=== PATIENT | female | born 1995 | race Caucasian/White ===

== ENCOUNTER 2016-08-10 23:04 | Inpatient (IN) | payer OTHER ==
[2016-08-10] MEDS ORDERED: TERBUTALINE 1 MG/ML VIAL SQ PRN (23:27)
[2016-08-10] MEDS ORDERED: OXYTOCIN 10 UNIT/ML 1 ML VIAL IM PRN (23:27)
[2016-08-10] MEDS ORDERED: CARBOPROST TROMETHAMINE 250 MCG/ML 1 ML AMP IM PRN (23:27)
[2016-08-10] MEDS ORDERED: LIDOCAINE 1% (PF) 10 MG/ML (30 ML SDV) SQ PRN (23:27)
[2016-08-10] MEDS ORDERED: METHYLERGONOVINE 0.2 MG/ML 1 ML AMP IM PRN (23:27)
[2016-08-10] MEDS ORDERED: OXYTOCIN 30 UNITS/500 ML NS 30 UNIT in SALINE 1 500ML.BAG IV SCH (23:30)
[2016-08-11 00:06] LABS: Basophils # (A) 0.1 k/uL (0-0.2); Basophils % (A) 0 %; CH 30.3; CHCM 34.1; Eosinophils # (A) 0.1 k/uL (0-0.7); Eosinophils % (A) 1 %; HCT 40.7 % (34.0-46.0); HDW 2.95; HGB 13.2 gm/dL (11.4-16.0); Luc # (Auto) 0.19; Luc % (Auto) 1; Lymphocytes # (A) 2.1 k/uL (1.0-4.8); Lymphocytes % (A) 15 %; MCHC 32.5 g/dL (31.0-37.0); MCV 89.3 fL (80.0-100.0); Mean Platelet Volume 6.8; Monocytes # (A) 0.7 k/uL (0-1.0); Monocytes % (A) 5 %; Neutrophils # (A) 10.7 k/uL (1.3-7.7); Neutrophils % (A) 78 %; RBC 4.56 m/uL (3.80-5.40); RDW 13.7 % (11.5-15.5); WBC 13.8 k/uL (3.8-10.6); WBC (Perox) 14.46
[2016-08-11] MEDS: LACTATED RINGERS 1,000 ML IV SCH ×2 (00:08→07:55)
[2016-08-11 01:19] VITALS: BMI 34.9
[2016-08-11] MEDS ORDERED: PENICILLIN G POTASSIUM 5,000,000 UNIT in DEXTROSE 5% IN WATER 100 ML IV STA ×2 (08:05)
--- NOTE | 2016-08-11 08:13 | P.HPOB ---
History of Present Illness H&P Date: 08/11/16 Chief Complaint: 40 and one sevenths weeks, spontaneous rupture of membranes The patient is a 20-year-old 1 para 0 admitted at 40 and one sevenths weeks as established by last menstrual period and confirmed by 19 week ultrasound. She is admitted with documented spontaneous rupture of membranes and unfavorable cervix. Her has been uncomplicated and group B strep status is negative. On labor and delivery, all signs are reassuring. Obstetrical history 1 para 0 with current statistics listed in history present illness. EDC of 08/09/2016 was established by last menstrual period and confirmed by 19 week ultrasound. Laboratory workup demonstrates a blood type of B+ with a negative antibody screen. Rubella status is immune. All other laboratory workup was within normal limits. One hour Glucola was normal and group B strep status is negative. Gynecologic history is unremarkable with no history of any infections to include STDs. Review of Systems Review of systems is confined to history of present illness. Past Medical History Past Medical History: No Reported History History of Any Multi-Drug Resistant Organisms: None Reported Past Surgical History: No Surgical Hx Reported Past Anesthesia/Blood Transfusion Reactions: No Reported Reaction Past Psychological History: No Psychological Hx Reported Smoking Status: Never smoker Past Alcohol Use History: None Reported Past Drug Use History: None Reported - Past Family History Mother Family Medical History: No Reported History Medications and Allergies Home Medications Medication Instructions Recorded Confirmed Type Bxv-Umiu-Bwcje Acid 1 tab PO DAILY 08/10/16 08/10/16 History [-U Capsule] Allergies Allergy/AdvReac Type Severity Reaction Status Date / Time nickel Allergy Rash/Hives Verified 08/10/16 23:08 Exam - Vital Signs Vital signs: Vital Signs Temp Pulse Resp BP Pulse Ox 08/10/16 23:26 96.6 F L 124 H 18 159/75 99 Intake and Output 08/10/16 08/11/16 08/11/16 22:59 06:59 14:59 Intake Total 1000 Balance 1000 Intake: IV 1000 Lactated Ringers 1,000 ml 1000 @ 125 mls/hr IV .Q8H [facility] Rx#:[id number] Other: Weight 104.326 kg In general, this is a well-developed, well-nourished white female in no acute distress. Her heart has a regular rhythm and rate without murmur. Her lungs are clear to auscultation bilaterally in all castro. Her abdomen is gravid, nondistended, has normal active bowel sounds, is soft, nontender, and without any palpable masses aside from uterine fundus. Her extremities are without any cyanosis, clubbing, or edema and are nontender to palpation bilaterally. Digital cervical examination last performed by the nursing staff recently demonstrates her cervix to be 1 cm dilated, 60% effaced, with the vertex in presentation at -2 station. Spontaneous rupture of membranes has been confirmed. Results Result Diagrams: 08/10/16 23:53 Abnormal Lab Results - Last 24 Hours (Table) 08/10/16 Range/Units 23:53 WBC 13.8 H (3.8-10.6) k/uL Neutrophils # 10.7 H (1.3-7.7) k/uL Assessment and Plan (1) Spontaneous rupture of amniotic membranes Status: Acute (2) Term Status: Acute Plan: The patient has been started on Pitocin augmentation but at this point, continues to feel the only few contractions. Her cervix is made no significant change. Given the fact that she is remote from delivery and only 170 dilated, penicillin prophylaxis will be started for group B strep. She will continue to have close maternal and surveillance and expectant management will be practiced. She is a good candidate for either IV or epidural analgesia, whichever she may choose.
[2016-08-11] MEDS: BUTORPHANOL 1 MG/ML 1 ML VIAL IV PRN ×2 (10:53→13:08)
[2016-08-11] MEDS ORDERED: PENICILLIN G POTASSIUM 2,500,000 UNIT in DEXTROSE 5% IN WATER 100 ML IV SCH ×2 (12:15)
[2016-08-11] MEDS ORDERED: WITCH HAZEL 1 EACH MED..PAD TOPICAL PRN (16:03)
[2016-08-11] MEDS ORDERED: Acetaminophen-Codeine 300-30mg TAB PO PRN ×2 (16:03)
[2016-08-11] MEDS ORDERED: HYDROCORTISONE 2.5% RECTAL CREAM 30 GM TUBE RECTAL PRN (16:03)
[2016-08-11] MEDS ORDERED: diphenhydrAMINE 50 MG/ML 1 ML VIAL IVP PRN ×2 (16:03)
[2016-08-11] MEDS ORDERED: diphenhydrAMINE 25 MG CAP PO PRN (16:03)
[2016-08-11] MEDS ORDERED: ZOLPIDEM 5 MG TAB PO PRN (16:03)
[2016-08-11] MEDS ORDERED: LANOLIN CREAM 5 GM TUBE TOPICAL PRN (16:03)
[2016-08-11] MEDS ORDERED: BENZOCAINE/MENTHOL SPRAY 1 GM/SPRAY AEROSOL TOPICAL PRN (16:03)
[2016-08-11] MEDS ORDERED: diphenhydrAMINE 50 MG CAP PO PRN (16:03)
[2016-08-11] MEDS ORDERED: SIMETHICONE 80 MG CHEWABLE PO PRN (16:03)
[2016-08-11] MEDS ORDERED: ACETAMINOPHEN TAB 325 MG TAB PO PRN (16:03)
[2016-08-11] MEDS ORDERED: IBUPROFEN 600 MG TAB PO PRN (16:03)
--- NOTE | 2016-08-11 16:07 | P.PROBDLV ---
Vaginal Delivery Note - . Vaginal Delivery Note: The patient is a 20-year-old 1 para 0 admitted at 40-2/7 weeks by good dating parameters. She is admitted with documented spontaneous rupture of membranes of clear fluid and all signs reassuring. Her has been uncomplicated and group B strep status is negative. On labor and delivery, her cervix was initially found to be 1 cm dilated. She was had Pitocin augmentation started shortly after delivery and failed to make any significant progress over the first 12 hours. As result, she had antibiotic prophylaxis started as she was remote from delivery at 12 hours of post rupture. She then did progress to the onset of the active phase of labor and required only 2 doses of Stadol but made fairly quick progress to the active phase to complete and +1 station. She pushed over the course of approximately 15-20 minutes to a normal spontaneous vaginal delivery of a viable 8 lbs. 0 oz. baby boy with Apgars of 9 at 1 minute and 9 at 5 minutes delivered in the direct occiput anterior position. The placenta was delivered spontaneously, intact, and grossly normal with a grossly normal, centrally inserted three-vessel cord. There was a small midline second-degree perineal laceration with a first-degree left labial extension which was repaired with 3-0 chromic catgut without difficulty. Estimated blood loss for the case was approximately 150 mL. There were no complications. All sponge, instrument, and needle counts were correct. Both mother and infant are resting comfortably in recovery.
[2016-08-11] MEDS ORDERED: OXYTOCIN 30 UNITS/500 ML NS 30 UNIT in SALINE 1 500ML.BAG IV SCH (16:15)
[2016-08-11] MEDS: SENNOSIDES-DOCUSATE SODIUM 1 EACH TAB PO SCH (20:22)
[2016-08-12 08:08] VITALS: BP 101/68; PULSE 87; RESP 16; TEMP 97.1
[2016-08-12] MEDS: SENNOSIDES-DOCUSATE SODIUM 1 EACH TAB PO SCH (08:10)
--- NOTE | 2016-08-12 10:08 | P.DS ---
Providers Date of admission: 08/10/16 23:21 Expected date of discharge: 08/12/16 Attending physician: Esha Rosado Primary care physician: Stated None - Discharge Diagnosis(es) (1) Spontaneous rupture of amniotic membranes Current Visit: Yes Status: Acute (2) Term Current Visit: Yes Status: Acute (3) Normal spontaneous vaginal delivery Current Visit: Yes Status: Acute Hospital Course: The patient is a 20-year-old 1 para 0 admitted at 40 and one sevenths weeks by good dating parameters. She was admitted with documented spontaneous rupture of membranes of clear fluid. Group B strep status was negative. On labor and delivery, Pitocin augmentation started and she made very little progress through the first 12 hours of latent phase of labor. She had antibody prophylaxis started for group B strep after which time she began to make fairly significant change. She made good progress through the active phase of labor to complete and then pushed fairly quickly to a normal spontaneous vaginal delivery of a viable 8 lbs. 0 oz. baby boy with Apgars of 9 at 1 minute and 9 at 5 minutes. Her course was unremarkable with vital signs remaining stable and her temperature was afebrile throughout. She was deemed stable for discharge by day #1 was discharged home to follow-up in the office in 6 weeks' time routinely. Discharge instructions included calling for any significantly increased bleeding or foul-smelling lochia, significantly increased fever abdominal pain, perineal complaints, breast complaints, or anything else that concerned her. She was additionally instructed to have nothing in the vagina for at least 6 weeks time to include intercourse. She understood her instructions and agrees to follow up as noted above. Discharge medications included sodm-ndy-wulbsrg analgesic pain medications and continued vitamins as she has opted to breast-feed. She was additionally provided with a prescription for a dual electric breast pump. Maternal blood type is B+ and rubella status is immune. Procedures: #1. Pitocin augmentation #2. Antibiotic prophylaxis #3. Normal spontaneous vaginal delivery #4. Repair of perineal laceration Patient Condition at Discharge: Good Plan - Discharge Summary Discharge Medication List Wmd-Ruym-Xndhg Acid [-U Capsule] 1 tab PO DAILY 08/10/16 [ History] Follow up Appointment(s)/Referral(s): Esha Rosado MD [STAFF PHYSICIAN] - 6 Weeks Discharge Disposition: HOME SELF-CARE
== END 2016-08-12 18:15 | disposition home or self-care (01) | DRG 775 ==
LOC: FBPOP 23:04 → 4FBP 23:21
PROVIDERS: ADMIT Obstetrics & Gynecology; ATTEND Obstetrics & Gynecology
PROC: 10E0XZZ Delivery of Products of Conception, External Approach (ICD-10-PCS; principal; 2016-08-11)
PROC: 0KQM0ZZ Repair Perineum Muscle, Open Approach (ICD-10-PCS; 2016-08-11)
DX: O70.1 Second degree perineal laceration during delivery (principal); Z37.0 Single live birth; Z3A.40 40 weeks gestation of pregnancy
CPT/HCPCS: 59025; 84112; 85025; 88307; 99213

== ENCOUNTER → 2017-01-30 | Outpatient (CLI) | payer OTHER | LOC: LABWHC1 14:50 | PROVIDERS: ATTEND Physician Assistant | DX: R94.6 Abnormal results of thyroid function studies (principal) | CPT/HCPCS: 36415; 83519; 84439; 84443; 84481 ==

== ENCOUNTER → 2017-03-14 | Outpatient (CLI) | payer OTHER ==
[2017-03-14 15:56] LABS: CH 30.2; HCT 44.5 % (34.0-46.0); HDW 2.75; HGB 14.6 gm/dL (11.4-16.0); MCH 29.3 pg (25.0-35.0); MCHC 32.8 g/dL (31.0-37.0); MCV 89.2 fL (80.0-100.0); Mean Platelet Volume 6.5; RBC 4.99 m/uL (3.80-5.40); RDW 13.3 % (11.5-15.5); WBC 9.4 k/uL (3.8-10.6)
[2017-03-14 16:06] LABS: ALT 31 U/L (9-52); AST 21 U/L (14-36); Alkaline Phosphatase 109 U/L (38-126); Anion Gap 11 mmol/L; Blood Urea Nitrogen 15 mg/dL (7-17); Calcium 9.9 mg/dL (8.4-10.2); Carbon Dioxide 27 mmol/L (22-30); Chloride 101 mmol/L (98-107); Glucose 79 mg/dL (74-99); Non-African American GFR(MDRD) >60 (>60 ml/min/1.73 sqM); Potassium 4.6 mmol/L (3.5-5.1); Sodium 139 mmol/L (137-145); Total Bilirubin 0.4 mg/dL (0.2-1.3); Total Protein 7.5 g/dL (6.3-8.2)
== END ==
LOC: LABWHC1 15:18
PROVIDERS: ATTEND Internal Medicine Endocrinology, Diabetes & Metabolism
DX: E05.90 Thyrotoxicosis, unspecified without thyrotoxic crisis or storm (principal)
CPT/HCPCS: 36415; 80053; 84445; 85027

== ENCOUNTER → 2017-03-16 | Outpatient (CLI) | payer OTHER ==
--- NOTE | 2017-03-16 14:59 | US ---
EXAMINATION TYPE: US thyroid st tissue head/neck DATE OF EXAM: 03/16/2017 COMPARISON: NONE CLINICAL HISTORY: E05.90 Hyperthyroidism. Since having baby 7 months ago GLAND SIZE: Right Lobe: 4.0 x 2.8 x 1.3 cm Overall Parenchyma: homogenous Left Lobe: 4.0 x 1.0 x 1.1 cm Overall Parenchyma: homogeneous Isthmus Thickness: 0.2 cm NODULES RIGHT: # of nodules measured on right: 0 LEFT: # of nodules measured on left: 0 ISTHMUS: # of nodules measured in the isthmus: 0 Bilateral neck scanned, no evidence of lymphadenopathy. IMPRESSION: Normal thyroid ultrasound
== END | disposition home or self-care (01) ==
LOC: RADUSWWP 14:12
PROVIDERS: ATTEND Internal Medicine Endocrinology, Diabetes & Metabolism
DX: E05.90 Thyrotoxicosis, unspecified without thyrotoxic crisis or storm (principal)
CPT/HCPCS: 76536

== ENCOUNTER 2017-04-18 19:10 | Emergency (ER) | payer OTHER ==
[2017-04-18] MEDS ORDERED: SODIUM CHLORIDE 0.9% 1,000 ML IV ONE (20:59)
[2017-04-18 21:15] LABS: Basophils # (A) 0.1 k/uL (0-0.2); Basophils % (A) 1 %; CH 30.3; Eosinophils # (A) 0.1 k/uL (0-0.7); Eosinophils % (A) 1 %; HCT 42.1 % (34.0-46.0); HDW 2.82; HGB 14.6 gm/dL (11.4-16.0); Luc % (Auto) 2; Lymphocytes # (A) 2.6 k/uL (1.0-4.8); Lymphocytes % (A) 25 %; MCH 29.3 pg (25.0-35.0); MCHC 34.7 g/dL (31.0-37.0); MCV 84.6 fL (80.0-100.0); Mean Platelet Volume 6.5; Monocytes # (A) 0.5 k/uL (0-1.0); Monocytes % (A) 5 %; Neutrophils # (A) 7.1 k/uL (1.3-7.7); Neutrophils % (A) 67 %; RBC 4.97 m/uL (3.80-5.40); RDW 13.6 % (11.5-15.5); WBC 10.6 k/uL (3.8-10.6); WBC (Perox) 10.91
[2017-04-18 21:23] LABS: Appearance,Urine Clear (Clear); Bacteria,Urine Rare /hpf; Bilirubin,Urine Negative (Negative); Glucose,Urine (UA) Negative (Negative); Ketones,Urine Negative (Negative); Leukocyte Esterase,Urine Small (Negative); Mucus,Urine Rare /hpf; Nitrite,Urine Negative (Negative); PH, Urine 6.5 (5.0-8.0); Particle Count 4477; Protein,Urine Negative (Negative); RBC,Urine 1 /hpf (0-5); Specific Gravity,Urine 1.019 (1.001-1.035); Squamous Epithelial Cell,Urine 3 /hpf (0-4); UA Billing (MACRO vs. MICRO) MICRO; Urobilinogen,Urine <2.0 mg/dL (<2.0); WBC,Urine 6 /hpf (0-5)
[2017-04-18 21:31] LABS: ALT 20 U/L (9-52); AST 19 U/L (14-36); Alkaline Phosphatase 112 U/L (38-126); Anion Gap 12 mmol/L; Blood Urea Nitrogen 14 mg/dL (7-17); Calcium 9.9 mg/dL (8.4-10.2); Carbon Dioxide 23 mmol/L (22-30); Chloride 104 mmol/L (98-107); Glucose 82 mg/dL (74-99); Non-African American GFR(MDRD) >60 (>60 ml/min/1.73 sqM); Potassium 4.2 mmol/L (3.5-5.1); Sodium 139 mmol/L (137-145); Total Bilirubin 0.4 mg/dL (0.2-1.3); Total Protein 7.5 g/dL (6.3-8.2)
--- NOTE | 2017-04-18 22:02 | CT ---
EXAMINATION TYPE: CT brain wo con DATE OF EXAM: 04/18/2017 COMPARISON: 10/22/2014 HISTORY: Dizziness, head pressure and nausea x [address] DLP: 1031.20 mGycm. Automated Exposure Control for Dose Reduction was Utilized. TECHNIQUE: CT scan of the head is performed without contrast. FINDINGS: Ventricles of normal size. There is no mass effect nor midline shift. There is no sign of i ntracranial hemorrhage. The calvarium is intact. IMPRESSION: Negative CT scan of the brain. No change. There is clearing of left maxillary sinusitis c ompared to old exam..
--- NOTE | 2017-04-18 22:30 | ED ---
General Adult HPI - General Chief complaint: Dizziness Stated complaint: Dizziness/Nausea Time Seen by Provider: 04/18/17 20:34 Source: patient Mode of arrival: ambulatory Limitations: no limitations - History of Present Illness Initial comments: 21-year-old female patient presented to emergency department today after having multiple episodes of head pressure, visual disturbance, and dizziness. Patient states that her first episode was on , states that she had approximately 15 episodes where she had onset of intense head pressure, spots in her vision, dizziness, and nausea that lasted a a few minutes. Patient states that during these episodes she felt that she may pass out. Patient states that she did have a few episodes over the next few days. She had approximate 4 episodes today, states that today he felt like a cold sensation in her head, the head pressure, blurred vision, dizziness, and nausea. Patient states that she did not vomit. She states that she feels normal once the episodes are over. Patient denies any history of headache, migraine, or seizure. Denies any other significant past medical history. Denies any recent fever, chills, chest pain, shortness of breath, palpitations, numbness, tingling , sweats, tinnitus, abdominal pain, constipation, diarrhea, hematuria, dysuria, urinary frequency, or urinary urgency. She is eating and drinking okay. She is currently symptom-free. - Related Data Home Medications Medication Instructions Recorded Confirmed Docusate [Colace] 100 mg PO ONCE PRN 04/18/17 04/18/17 Juleber-28 1 tab PO AC-SUPPER 04/18/17 04/18/17 Methimazole [Tapazole] 2.5 mg PO AC-SUPPER 04/18/17 04/18/17 Allergies Allergy/AdvReac Type Severity Reaction Status Date / Time nickel Allergy Rash/Hives Verified 04/18/17 20:12 Review of Systems ROS Statement: Those systems with pertinent positive or pertinent negative responses have been documented in the HPI. ROS Other: All systems not noted in ROS Statement are negative. Past Medical History Past Medical History: No Reported History Additional Past Medical History / Comment(s): MRSA - Wound - 08/2016 History of Any Multi-Drug Resistant Organisms: MRSA Date of last positivie culture/infection: 08/2016 MDRO Source:: Skin Past Surgical History: No Surgical Hx Reported Past Anesthesia/Blood Transfusion Reactions: No Reported Reaction Past Psychological History: No Psychological Hx Reported Smoking Status: Never smoker Past Alcohol Use History: None Reported Past Drug Use History: None Reported - Past Family History Mother Family Medical History: No Reported History General Exam Limitations: no limitations General appearance: alert, in no apparent distress Head exam: Present: atraumatic, normocephalic, normal inspection Eye exam: Present: normal appearance, PERRL, EOMI. Absent: scleral icterus, conjunctival injection, nystagmus, periorbital swelling ENT exam: Present: normal exam, normal oropharynx, mucous membranes moist, TM's normal bilaterally Neck exam: Present: normal inspection, full ROM. Absent: tenderness, meningismus, lymphadenopathy Respiratory exam: Present: normal lung sounds bilaterally. Absent: respiratory distress, wheezes, rales, rhonchi, stridor Cardiovascular Exam: Present: regular rate, normal rhythm, normal heart sounds. Absent: systolic murmur, diastolic murmur, rubs, gallop, clicks GI/Abdominal exam: Present: soft, normal bowel sounds. Absent: distended, tenderness, guarding, rebound, rigid Extremities exam: Present: normal inspection, full ROM, normal capillary refill. Absent: tenderness, pedal edema, joint swelling, calf tenderness Back exam: Present: normal inspection Neurological exam: Present: alert, oriented X3, CN II-XII intact Psychiatric exam: Present: normal affect, normal mood Skin exam: Present: warm, dry, intact, normal color. Absent: rash Course Vital Signs 04/18/17 04/18/17 04/18/17 19:28 21:25 22:41 Temperature 98.0 F 98.4 F Pulse Rate 90 62 72 Respiratory 16 16 18 Rate Blood Pressure 129/73 113/62 113/70 O2 Sat by Pulse 98 99 97 Oximetry Medical Decision Making - Medical Decision Making 21-year-old female patient presents today for evaluation of multiple episodes of head pressure, dizziness, vision disturbance, and nausea. Labs are performed including thyroid studies which were within normal limits. Urinalysis showed a small amount of wbc and bacteria, this isn't sent for culture. HCG was negative. CT of the brain without contrast showed no intracranial abnormalities. Patient will be discharged home to follow up with her primary care physician for a recheck in 1-2 days. She is instructed to increase her fluid intake, rest, and return here immediately for any new, worsening, or concerning symptoms. Patient verbalizes understanding and agrees with this plan. - Lab Data Result diagrams: 04/18/17 20:25 04/18/17 20:25 Lab Results 04/18/17 04/18/17 04/18/17 Range/Units 20:25 20:25 20:25 WBC 10.6 (3.8-10.6) k/uL RBC 4.97 (3.80-5.40) m/uL Hgb 14.6 (11.4-16.0) gm/dL Hct 42.1 (34.0-46.0) % MCV 84.6 (80.0-100.0) fL MCH 29.3 (25.0-35.0) pg MCHC 34.7 (31.0-37.0) g/dL RDW 13.6 (11.5-15.5) % Plt Count 395 (150-450) k/uL Neutrophils % 67 % Lymphocytes % 25 % Monocytes % 5 % Eosinophils % 1 % Basophils % 1 % Neutrophils # 7.1 (1.3-7.7) k/uL Lymphocytes # 2.6 (1.0-4.8) k/uL Monocytes # 0.5 (0-1.0) k/uL Eosinophils # 0.1 (0-0.7) k/uL Basophils # 0.1 (0-0.2) k/uL Sodium 139 (137-145) mmol/L Potassium 4.2 (3.5-5.1) mmol/L Chloride 104 (98-107) mmol/L Carbon Dioxide 23 (22-30) mmol/L Anion Gap 12 mmol/L BUN 14 (7-17) mg/dL Creatinine 0.92 (0.52-1.04) mg/dL Est GFR (MDRD) Af Amer >60 (>60 ml/min/1.73 sqM) Est GFR (MDRD) Non-Af >60 (>60 ml/min/1.73 sqM) Glucose 82 (74-99) mg/dL Calcium 9.9 (8.4-10.2) mg/dL Total Bilirubin 0.4 (0.2-1.3) mg/dL AST 19 (14-36) U/L ALT 20 (9-52) U/L Alkaline Phosphatase 112 (38-126) U/L Total Protein 7.5 (6.3-8.2) g/dL Albumin 4.5 (3.5-5.0) g/dL TSH 4.260 (0.465-4.680) mIU/L Urine Color Urine Appearance (Clear) Urine pH (5.0-8.0) Ur Specific Ballinger (1.001-1.035) Urine Protein (Negative) Urine Glucose (UA) (Negative) Urine Ketones (Negative) Urine Blood (Negative) Urine Nitrite (Negative) Urine Bilirubin (Negative) Urine Urobilinogen (<2.0) mg/dL Ur Leukocyte Esterase (Negative) Urine RBC (0-5) /hpf Urine WBC (0-5) /hpf Ur Squamous Epith Cells (0-4) /hpf Urine Bacteria (None) /hpf Urine Mucus (None) /hpf Urine HCG, Qual Not Detected (Not Detectd) 04/18/17 Range/Units 20:25 WBC (3.8-10.6) k/uL RBC (3.80-5.40) m/uL Hgb (11.4-16.0) gm/dL Hct (34.0-46.0) % MCV (80.0-100.0) fL MCH (25.0-35.0) pg MCHC (31.0-37.0) g/dL RDW (11.5-15.5) % Plt Count (150-450) k/uL Neutrophils % % Lymphocytes % % Monocytes % % Eosinophils % % Basophils % % Neutrophils # (1.3-7.7) k/uL Lymphocytes # (1.0-4.8) k/uL Monocytes # (0-1.0) k/uL Eosinophils # (0-0.7) k/uL Basophils # (0-0.2) k/uL Sodium (137-145) mmol/L Potassium (3.5-5.1) mmol/L Chloride (98-107) mmol/L Carbon Dioxide (22-30) mmol/L Anion Gap mmol/L BUN (7-17) mg/dL Creatinine (0.52-1.04) mg/dL Est GFR (MDRD) Af Amer (>60 ml/min/1.73 sqM) Est GFR (MDRD) Non-Af (>60 ml/min/1.73 sqM) Glucose (74-99) mg/dL Calcium (8.4-10.2) mg/dL Total Bilirubin (0.2-1.3) mg/dL AST (14-36) U/L ALT (9-52) U/L Alkaline Phosphatase (38-126) U/L Total Protein (6.3-8.2) g/dL Albumin (3.5-5.0) g/dL TSH (0.465-4.680) mIU/L Urine Color Yellow Urine Appearance Clear (Clear) Urine pH 6.5 (5.0-8.0) Ur Specific Ballinger 1.019 (1.001-1.035) Urine Protein Negative (Negative) Urine Glucose (UA) Negative (Negative) Urine Ketones Negative (Negative) Urine Blood Negative (Negative) Urine Nitrite Negative (Negative) Urine Bilirubin Negative (Negative) Urine Urobilinogen <2.0 (<2.0) mg/dL Ur Leukocyte Esterase Small H (Negative) Urine RBC 1 (0-5) /hpf Urine WBC 6 H (0-5) /hpf Ur Squamous Epith Cells 3 (0-4) /hpf Urine Bacteria Rare H (None) /hpf Urine Mucus Rare H (None) /hpf Urine HCG, Qual (Not Detectd) 04/18/17 22:38 EKG obtained at 2131 shows normal sinus rhythm with sinus arrhythmia, ventricular rate 66, MA interval 168, QRS duration 86, QT 408, QTC 477. No evidence of ST elevation or depression. - Radiology Data Radiology results: report reviewed, image reviewed CT of the brain is performed without contrast shows ventricles are of normal size. There is no mass effect or midline shift. There is no sign of intracranial hemorrhage. The calvarium is intact. Impression by Dr. Moreno shows negative computed tomography scan of the brain. No change. There is clearing of left maxillary sinusitis compared to old exam. Disposition Clinical Impression: Near syncope Disposition: HOME SELF-CARE Condition: Good Instructions: Near Syncope (ED) Additional Instructions: Follow-up with her primary care physician for recheck in 1-2 days. Increase fluid intake. Return here immediately for any new, worsening, or concerning symptoms. Referrals: Rolf Art III, MD [Primary Care Provider] - 1-2 days Garland Collazo MD [STAFF PHYSICIAN] - 1-2 days [facility] [Provider Group] - 1-2 days Time of Disposition: 22:31
[2017-04-18 22:52] VITALS: BP 113/70; PULSE 72; RESP 18; TEMP 98.4
== END 2017-04-18 22:58 | disposition home or self-care (01) ==
LOC: EC 19:10
DX: R55 Syncope and collapse (principal); R42 Dizziness and giddiness; R51 Headache; R11.0 Nausea; H53.8 Other visual disturbances; Z79.899 Other long term (current) drug therapy; Z88.8 Allergy status to other drugs, medicaments and biological substances
CPT/HCPCS: 36415; 70450; 80053; 81001; 81025; 84443; 85025; 87086; 93005; 96360; 99284

== ENCOUNTER → 2017-08-31 | Outpatient (CLI) | payer OTHER ==
[2017-08-31 14:13] LABS: T4, Free (Free Thyroxine) 0.83 ng/dL (0.78-2.19)
== END | disposition home or self-care (01) ==
LOC: LABWHC1 12:46
PROVIDERS: ATTEND Obstetrics & Gynecology
DX: N91.2 Amenorrhea, unspecified (principal)
CPT/HCPCS: 36415; 83001; 84439; 84443

== ENCOUNTER → 2018-04-20 | Outpatient (CLI) | payer OTHER ==
[2018-04-20 16:25] LABS: T4, Free (Free Thyroxine) 0.89 ng/dL (0.78-2.19)
== END | disposition home or self-care (01) ==
LOC: LABWHC1 15:30
PROVIDERS: ATTEND Internal Medicine Endocrinology, Diabetes & Metabolism
DX: E05.90 Thyrotoxicosis, unspecified without thyrotoxic crisis or storm (principal)
CPT/HCPCS: 36415; 84439; 84443; 84480

== ENCOUNTER → 2021-02-16 | Outpatient (CLI) | payer OTHER | END | disposition home or self-care (01) | LOC: LABMAIN 16:45 | PROVIDERS: ATTEND Obstetrics & Gynecology | DX: O20.0 Threatened abortion (principal) | CPT/HCPCS: 36415; 84702 ==

== ENCOUNTER 2021-02-26 09:42 | Day surgery (SDC) | payer OTHER ==
[2021-02-23 14:07] LABS: Basophils # (A) 0.1 k/uL (0-0.2); Basophils % (A) 1 %; Eosinophils # (A) 0.2 k/uL (0-0.7); Eosinophils % (A) 1 %; HCT 43.8 % (34.0-46.0); HGB 14.4 gm/dL (11.4-16.0); Lymphocytes # (A) 2.6 k/uL (1.0-4.8); Lymphocytes % (A) 24 %; MCH 29.6 pg (25.0-35.0); MCHC 32.8 g/dL (31.0-37.0); MCV 90.3 fL (80.0-100.0); Mean Platelet Volume 6.5; Monocytes # (A) 0.4 k/uL (0-1.0); Monocytes % (A) 4 %; Neutrophils # (A) 7.5 k/uL (1.3-7.7); Neutrophils % (A) 69 %; Platelet Count 386 k/uL (150-450); RBC 4.85 m/uL (3.80-5.40); RDW 12.9 % (11.5-15.5); WBC 10.9 k/uL (3.8-10.6)
[2021-02-24 13:49] VITALS: BMI 35.6
[~2021-02-26 09:42] MED LIST: DEXAMETHASONE SOD PHOSPHATE 4 MG/ML 1 ML VIAL IV ONE; HYDROmorphone 0.5 MG/0.5 ML SYRINGE IVP PRN; MIDAZOLAM 2 MG/2 ML VIAL IV PRN; ONDANSETRON 4 MG/2 ML VIAL IVP ONE; Pre Op ABX Message 1 EACH MISC MISCELLANE ONE; SCOPOLAMINE 1.5MG/72HR PATCH TRANSDERM ONE
[2021-02-26 10:19] VITALS: RESP 16
[2021-02-26] MEDS: LACTATED RINGERS 1,000 ML IV SCH ×2 (10:20→10:31)
[2021-02-26] MEDS ORDERED: fentaNYL (PF) 50 MCG/ML 2 ML AMP ONE (11:06)
[2021-02-26] MEDS ORDERED: LIDOCAINE 1% INJ 10MG/ML (20 ML MDV) ONE (11:06)
[2021-02-26] MEDS ORDERED: MIDAZOLAM 2 MG/2 ML VIAL ONE (11:06)
[2021-02-26] MEDS ORDERED: KETOROLAC 15 MG/ML 1 ML VIAL ONE (11:06)
[2021-02-26] MEDS ORDERED: PROPOFOL 10 MG/ML 20 ML VIAL IV ONE (11:06)
--- NOTE | 2021-02-26 11:31 | P.OP ---
Date of Procedure: 02/26/21 Preoperative Diagnosis: Missd Ab, blood type B positive Postoperative Diagnosis: Same Procedure(s) Performed: Suction dilatation and curettage Anesthesia: JOSE Surgeon: Esha Rosado Estimated Blood Loss (ml): 50 IV fluids (ml): 200 Urine output (ml): 150 Pathology: other (Products of conception) Condition: stable Disposition: PACU Description of Procedure: Patient is brought to the operating suite where a general anesthetic is administered without difficulty. She's placed in the dorsal lithotomy position. The cervix, vagina, perineal bodies are all prepped and draped in usual sterile fashion. Examination under anesthesia reveals a 6-8 week size anteverted uterus, negative adnexa bilaterally. Bladder is drained for approximately 150 mL of clear yellow urine. Weighted speculum was placed into the vagina and the anterior lip of the cervix is grasped with a double-tooth tenaculum. Uterus sounds to a depth of 10 cm in the retroverted position. The cervix is gently and systematically dilated using Hanks dilators. A size 8 curved curet is placed to the dome of the fundus and under appropriate suction pressures the uterine cavity is thoroughly curettaged. A medium sharp curette is used and all 4 quadrants to assure no retained products of conception. Suction curettage is once again swept into the cavity and is negative. Cervix is clean and dry. All sponge needle and enhancement counts are correct. Arslan maravilla is brought back to the recovery room in very good condition with stable vital signs including blood pressure 119/71, pulse 69, 100% O2 saturation. Toradol is given prior to leaving the operative suite. She will follow-up with me in the office in 2 weeks.
[2021-02-26 11:40] VITALS: TEMP 97
[2021-02-26] MEDS ORDERED: ACETAMINOPHEN TAB 500 MG TAB PO ONE (12:10)
[2021-02-26] MEDS ORDERED: ACETAMINOPHEN TAB 500 MG TAB ONE (12:16)
[2021-02-26 12:25] VITALS: BP 129/85; PULSE 61
== END 2021-02-26 12:58 | disposition home or self-care (01) ==
LOC: OR 09:42
PROVIDERS: ATTEND Obstetrics & Gynecology
DX: O02.1 Missed abortion (principal)
CPT/HCPCS: 59820; 86900; 86901; 88305; 85025; 86850; J2250; J1100; J2405; J2001; J3010; J1885; J2704

== ENCOUNTER 2021-05-23 12:07 | Emergency (ER) | payer OTHER ==
[2021-05-23] MEDS ORDERED: IBUPROFEN 600 MG TAB PO STA (12:55)
[2021-05-23] MEDS ORDERED: SODIUM CHLORIDE 0.9% 1,000 ML IV STA (12:55)
[2021-05-23] MEDS ORDERED: CASIRIVIMAB (REGN10933) (EUA) 600 MG, IMDEVIMAB (REGN10987) (EUA) 600 MG in SODIUM CHLO... IVPB ONE (13:30)
--- NOTE | 2021-05-23 13:47 | ED ---
URI HPI - General Chief Complaint: Upper Respiratory Infection Stated Complaint: covid+, vomiting Time Seen by Provider: 05/23/21 12:41 Source: patient, RN notes reviewed, old records reviewed Mode of arrival: ambulatory Limitations: no limitations - History of Present Illness Initial Comments: Patient is a 25-year-old female presenting to the emergency Department with complaints of not feeling well. Patient tested positive for cold yesterday, her symptoms began about 6 days ago. She developed body aches, chills, headache and then a cough and congestion. She has been having little bit of diarrhea. She is also having some nausea however no nausea at this time. She admits to some mild abdominal cramping but no significant abdominal pain. No chest pain or shortness of breath. She does admit to mild fevers, she's been taking Tylenol/Motrin for this. She denies history of asthma or COPD, she said nonsmoker. Patient denies being , she just started her menstrual cycle. She has no further complaints at this time. Take Tylenol a few hours prior to arrival. Patient has slight fever on arrival, mildly tachycardic 107, rest of vitals within normal limits. - Related Data Home Medications Medication Instructions Recorded Confirmed No Known Home Medications 02/24/21 02/26/21 Allergies Allergy/AdvReac Type Severity Reaction Status Date / Time nickel Allergy Rash/Hives Verified 05/23/21 12:40 Review of Systems ROS Statement: Those systems with pertinent positive or pertinent negative responses have been documented in the HPI. ROS Other: All systems not noted in ROS Statement are negative. Past Medical History Past Medical History: No Reported History Additional Past Medical History / Comment(s): MRSA - Wound - 08/2016, covid History of Any Multi-Drug Resistant Organisms: MRSA Date of last positivie culture/infection: 08/2016 MDRO Source:: Skin Past Surgical History: No Surgical Hx Reported Additional Past Surgical History / Comment(s): d&c, wisdom teeth Past Anesthesia/Blood Transfusion Reactions: No Reported Reaction Past Psychological History: No Psychological Hx Reported Smoking Status: Never smoker Past Alcohol Use History: None Reported Past Drug Use History: None Reported - Past Family History Mother Family Medical History: No Reported History Father Family Medical History: Blood Disorder, Deep Vein Thrombosis (DVT) Additional Family Medical History / Comment(s): Factor V Sister(s) Family Medical History: Blood Disorder Additional Family Medical History / Comment(s): Factor V General Exam - General Exam Comments Initial Comments: GENERAL: Patient is well-developed and well-nourished. Patient is nontoxic and in no acute distress. HEAD: Atraumatic, normocephalic. EYES: Pupils equal round and reactive to light, extraocular movements intact, sclera anicteric, conjunctiva are normal. Eyelids were unremarkable. ENT: TMs normal, nares patent, oropharynx clear without exudates. Moist mucous membranes. NECK: Normal range of motion, supple without lymphadenopathy or JVD. LUNGS: Unlabored respirations. Breath sounds clear to auscultation bilaterally and equal. No wheezes rales or rhonchi. HEART: Regular rate and rhythm without murmurs, rubs or gallops. ABDOMEN: Soft, nontender, normoactive bowel sounds. No guarding, no rebound. No masses appreciated. MUSCULOSKELETAL: Normal extremities with adequate strength and normal range of motion, no pitting or edema. No clubbing or cyanosis. NEUROLOGICAL: Patient is alert and oriented x 3. SKIN: Warm, Dry, normal turgor, no rashes or lesions noted. Limitations: no limitations Course Vital Signs 05/23/21 05/23/21 05/23/21 12:37 14:30 15:17 Temperature 99.7 F H 97.8 F Pulse Rate 107 H 78 Respiratory 18 20 18 Rate Blood Pressure 104/70 118/72 O2 Sat by Pulse 100 99 Oximetry Medical Decision Making - Medical Decision Making Patient is a 25-year-old female presenting after being diagnosed with Covid yesterday. She's been having symptoms for the past 6 days. Mild fever on arrival, tachycardic at 107. No chest pain or short of breath. Cough, congestion, dehydration. She does meet qualifications for monoclonal antibodies, she does agree to this. I also gave her some fluids, ibuprofen. Patient's vital signs remained stable. She had no adverse effects antibodies. She is stable for discharge. Return parameters were discussed with her and she verbalized understanding. Disposition Clinical Impression: COVID-19 Disposition: HOME SELF-CARE Condition: Stable Instructions (If sedation given, give patient instructions): Coronavirus Disease 2019 (COVID-19) Additional Instructions: Please return to the Emergency Department if symptoms worsen or any other conc erns. Continue to alternate between Tylenol and ibuprofen for any discomfort/fevers. Follow-up with your primary care as needed. Is patient prescribed a controlled substance at d/c from ED?: No Referrals: Rolf Art III, MD [Primary Care Provider] - 1-2 days Time of Disposition: 15:19
[2021-05-23] MEDS ORDERED: SODIUM CHLORIDE 0.9% 50 ML IVPB ONE (14:00)
[2021-05-23 15:18] VITALS: BP 118/72
[2021-05-24 00:35] VITALS: PULSE 86; RESP 20; TEMP 98.2
== END 2021-05-23 15:40 | disposition home or self-care (01) ==
LOC: EC 12:07
DX: U07.1 COVID-19 (principal); Z88.8 Allergy status to other drugs, medicaments and biological substances
CPT/HCPCS: 99284 ×2; 96365; 96361; M0243; Q0243

== ENCOUNTER → 2021-06-14 | Outpatient (CLI) | payer OTHER ==
--- NOTE | 2021-06-15 06:56 | CT ---
EXAMINATION TYPE: CT abdomen pelvis w con DATE OF EXAM: 06/14/2021 HISTORY: diarrhea, lower abd pain since covid diagnosis. CT DLP: 1678.8mGycm Automated Exposure Control for Dose Reduction was Utilized. CONTRAST: CT scan of the abdomen and pelvis is performed with IV Contrast, patient injected with 100 mL of Isov ue 300. COMPARISON: None. FINDINGS: LUNG BASES: No significant abnormality is appreciated. LIVER/GB: No significant abnormality is appreciated. PANCREAS: No significant abnormality is seen. SPLEEN: Small splenule in inferior splenic hilum axial image 24. ADRENALS: No significant abnormality is seen. KIDNEYS: No significant abnormality is seen. BOWEL: Slightly low-lying cecum with normal-appearing appendix in the right pelvis. Oral contrast adair s not reach colonic level making evaluation of distal bowel slightly suboptimal. No suspicious small or large bowel dilatation is seen. UTERUS/ADNEXA: Anteverted uterus projects to right of midline. Ovaries are symmetric and within akil l limits in size. Single left-sided pelvic phlebolith. LYMPH NODES: No greater than 1cm abdominal or pelvic lymph nodes are appreciated. OSSEOUS STRUCTURES: No significant abnormality is seen. OTHER: No significant additional abnormality is seen. IMPRESSION: No significant acute finding is seen to account for patient's clinical symptoms of lower abdominal pain and diarrhea. Unremarkable study.
== END | disposition home or self-care (01) ==
LOC: RADCTMAIN 17:26
PROVIDERS: ATTEND Family Medicine
DX: R10.30 Lower abdominal pain, unspecified (principal); R19.7 Diarrhea, unspecified; R11.0 Nausea; R63.4 Abnormal weight loss
CPT/HCPCS: 74177; Q9967

== ENCOUNTER → 2021-08-23 | Outpatient (CLI) | payer SELFPAY ==
[2021-08-23 22:59] LABS: Basophils # (A) 0.08 X 10*3/uL (0.00-0.10); Basophils % (A) 0.8 %; Eosinophils # (A) 0.17 X 10*3/uL (0.04-0.35); Eosinophils % (A) 1.7 %; HCT 43.7 % (37.2-46.3); HGB 13.9 g/dL (12.0-15.0); Lymphocytes # (A) 2.46 X 10*3/uL (0.90-5.00); Lymphocytes % (A) 24.8 %; MCH 28.8 pg (27.0-32.0); MCHC 31.8 g/dL (32.0-37.0); MCV 90.7 fL (80.0-97.0); Mean Platelet Volume 9.4 fL (9.5-12.2); Neutrophils # (A) 6.57 X 10*3/uL (1.80-7.70); Neutrophils % (A) 66.3 %; Platelet Count 381 X 10*3/uL (140-440); RBC 4.82 X 10*6/uL (4.10-5.20); RDW 13.2 % (11.5-14.5); WBC 9.92 X 10*3/uL (4.50-10.00)
[2021-08-24 00:25] LABS: Erythrocyte Sedimentation Rate 16 mm/Hr (0-20)
[2021-08-24 08:04] LABS: ALT 17 U/L (8-44); AST 22 U/L (13-35); African American GFR (CKD) 101.8 (60.0-200.0); Albumin 4.6 g/dL (3.8-4.9); Alkaline Phosphatase 95 U/L (41-126); BUN/Creat Ratio 19.04 Ratio (12.00-20.00); Blood Urea Nitrogen 17.1 mg/dL (9.0-27.0); Calcium 9.8 mg/dL (8.7-10.3); Chloride 101 mmol/L (96-109); Globulin 2.3 g/dL (1.6-3.3); Glucose 93 mg/dL (70-110); Non-African American GFR(CKD) 87.9 (60.0-200.0); Potassium 4.4 mmol/L (3.5-5.5); Sodium 139 mmol/L (135-145); Total Bilirubin <0.20 mg/dL (0.30-1.20)
[2021-08-24 22:39] LABS: Gliadin AB IgA, Deaminated NEGATIVE (NEGATIVE); Gliadin AB IgG, Deaminated NEGATIVE (NEGATIVE)
== END | disposition home or self-care (01) ==
LOC: LABWHC1 16:02
PROVIDERS: ATTEND Internal Medicine Gastroenterology
DX: R19.4 Change in bowel habit (principal)
CPT/HCPCS: 36415; 80053; 83516; 85025; 85652; 86140

== ENCOUNTER 2021-09-03 10:07 | Day surgery (SDC) | payer OTHER ==
[2021-08-31 15:33] VITALS: BMI 33.4
[~2021-09-03 10:07] MED LIST changes: -DEXAMETHASONE SOD PHOSPHATE 4 MG/ML 1 ML VIAL IV ONE; -HYDROmorphone 0.5 MG/0.5 ML SYRINGE IVP PRN; +LACTATED RINGERS 1,000 ML IV SCH; +LIDOCAINE 1% (10MG/ML) FOR IV START INTRADERMA PRN; -MIDAZOLAM 2 MG/2 ML VIAL IV PRN; -ONDANSETRON 4 MG/2 ML VIAL IVP ONE; -Pre Op ABX Message 1 EACH MISC MISCELLANE ONE; -SCOPOLAMINE 1.5MG/72HR PATCH TRANSDERM ONE
[2021-09-03 10:35] VITALS: RESP 16; TEMP 97.9
[2021-09-03] MEDS ORDERED: PROPOFOL 10 MG/ML 20 ML VIAL IV ONE (10:40)
[2021-09-03] MEDS ORDERED: ONDANSETRON 4 MG/2 ML VIAL ONE (10:40)
[2021-09-03] MEDS ORDERED: LIDOCAINE 1% INJ 10MG/ML (20 ML MDV) ONE (10:40)
--- NOTE | 2021-09-03 11:01 | P.PCN ---
Date of Procedure: 09/03/21 Procedure(s) Performed: Brief history: Patient is a pleasant 26-year-old white female scheduled for an upper endoscopy as well as colonoscopy as a part of evaluation of abdominal pain associated with nausea vomiting and intermittent episodes of diarrhea for the last several years duration. Lately has been progressively getting worse in February 2021. She was started on Bentyl 10 mg 3 times daily and still remains symptomatic. Has intermittent nausea vomiting. Procedure performed: Esophagogastroduodenoscopy with biopsy Colonoscopy with random biopsies Preoperative diagnosis: Abdominal pain/nausea vomiting Intermittent diarrhea and lower abdominal pain Anesthesia: MAC Procedure: After informed consent was obtained from the patient was brought into the endoscopy unit and IV sedation was administered by anesthesia under continuous monitoring. Initially upper endoscopy was done. The Olympus GF 160 video endoscope was inserted inserted into the mouth and esophagus intubated without any difficulty and was gradually advanced into the stomach and duodenum and carefully examined. The bulb and second part of the duodenum appeared normal. Abscesses were done from the duodenum to rule out celiac disease. The scope was then withdrawn into the stomach adequately insufflated with air and upon careful examination the antrum gastritis and biopsies were done from this area. The body, cardia and fundus appeared normal. The scope was then withdrawn into the esophagus. mall sliding type hiatal hernia noted. The GE junction was located at 40 cm to the incisors. It appeared regular with no erythema erosions or ulcerations. Rest of the esophagus appeared normal. Patient tolerated the procedure well. At this time the patient continued to remain sedation. Initial digital rectal examination was normal. Olympus CF 160 video colonoscope was then inserted into the rectum and gradually advanced to the cecum without any difficulty. Careful examination was performed as the scope was gradually being withdrawn. The prep was excellent. terminal ileum was intubated and 20 cm visualized and appeared normal. The cecum, ascending colon, transverse colon, descending colon, sigmoid colon and rectum appeared normal. Random biopsies were done from ascending and descending colon to rule out microscopic/collagenous colitis. Retroflexion was performed in the rectum and no lesions were noted. Patient tolerated the procedure well. Impression: 1. Upper endoscopy revealed mild antral gastritis small sliding type hiatal hernia 2. Colonoscopy was within normal limits with no evidence of colitis or colorectal neoplasia Recommendations: Findings of this examination were discussed with the patient as well as her family. She was advised to follow with the biopsy results. She will continue with her current medications and follow antireflux measures. She'll be seen in office in 2-3 weeks.
[2021-09-03 11:31] VITALS: BP 123/83; PULSE 62
== END 2021-09-03 12:05 | disposition home or self-care (01) ==
LOC: ORWHC2ENDO 10:07
PROVIDERS: ATTEND Internal Medicine Gastroenterology
DX: D72.820 Lymphocytosis (symptomatic) (principal); K29.50 Unspecified chronic gastritis without bleeding; K44.9 Diaphragmatic hernia without obstruction or gangrene; K20.90 Esophagitis, unspecified without bleeding; D64.9 Anemia, unspecified; F32.A Depression, unspecified; Z79.899 Other long term (current) drug therapy
CPT/HCPCS: 81025; 88305; 45380; 43239; J2405; J2001; J2704

== ENCOUNTER → 2021-09-09 | Outpatient (CLI) | payer OTHER | END | disposition home or self-care (01) | LOC: LABWHC1 12:02 | PROVIDERS: ATTEND Nurse Practitioner Family | DX: Z09 Encounter for follow-up examination after completed treatment for conditions other than malignant neoplasm (principal); Z83.79 Family history of other diseases of the digestive system | CPT/HCPCS: 36415 ==

== ENCOUNTER → 2022-04-22 | Outpatient (CLI) | payer OTHER ==
--- NOTE | 2022-04-22 08:46 | USB ---
Reason for Exam: Clinical finding. Patient History: Menarche at age 11. First Full-Term at age 19. Maternal grandmother had breast cancer, age 50. Maternal aunt had breast cancer, age 40. Maternal aunt had breast cancer, age 60. Maternal aunt had breast cancer, age 58. Maternal cousin had breast cancer, age 39. Maternal cousin had breast cancer, age 41. Technique: Method: Targeted. Findings: There is a complex anechoic structure with good through transmission. Some debris is present within this structure. This measures 6.1 x 1.7 x 3.4 cm at the 4:00 position left breast corresponding to the palpable abnormality. Vascularity is adjacent. There is an oval hypoechoic area which contains debris which has motion on real-time observation reported by the technologist.. Overall Assessment: Suspicious, BI-RAD 4 Management: Ultrasound Core Biopsy of the left breast. A clinical breast exam by your physician is recommended on an annual basis and results should be correlated with mammographic findings. Electronically signed and approved by: Aki Keane D.O. Radiologis
--- NOTE | 2022-04-22 08:48 | MM ---
Reason for Exam: Clinical finding. Patient History: Menarche at age 11. First Full-Term at age 19. Maternal grandmother had breast cancer, age 50. Maternal aunt had breast cancer, age 40. Maternal aunt had breast cancer, age 60. Maternal aunt had breast cancer, age 58. Maternal cousin had breast cancer, age 39. Maternal cousin had breast cancer, age 41. Last menstrual period: 04/20/2022 Tissue Density: The breast tissue is heterogeneously dense. This may lower the sensitivity of mammography. Findings: Analyzed By CAD. Heterogenous appearance to the parenchymal tissue. Focal distortion disperses on compression within the outer right breast craniocaudal view. No suspicious mammographic abnormalities at the palpable region left breast 4:00 position. Ultrasound should be performed for additional evaluation at this location. Overall Assessment: Incomplete: need additional imaging evaluation, BI-RAD 0 Management: Diagnostic Breast Ultrasound of the left breast. A clinical breast exam by your physician is recommended on an annual basis and results should be correlated with mammographic findings. This exam should not preclude additional follow-up of suspicious palpable abnormalities. Results were given to the patient verbally at the time of exam. Electronically signed and approved by: Aki Keane D.O. Radiologis
== END | disposition home or self-care (01) ==
LOC: RADMAMWWP 07:33
PROVIDERS: ATTEND Obstetrics & Gynecology
DX: N60.02 Solitary cyst of left breast (principal)
CPT/HCPCS: 77066

== ENCOUNTER → 2022-04-28 | Day surgery (SDC) | payer OTHER ==
--- NOTE | 2022-05-03 13:36 | USB ---
Pathology Description: Location: 4 o'clock. Marker Left Behind. Needle Type: Mammotome Cores: 7 Gauge: 13 The patient has a strong family history of breast cancer and other cancers in her maternal aunts and maternal cousins. The procedure of ultrasound guided aspiration and core biopsy was explained to the patient. Benefits, alternatives, and risks were discussed. An informed consent was then obtained. The patient was placed in supine positioning for imaging and for the procedure. The overlying skin was prepped and draped in usual sterile fashion. Lidocaine was used as anesthetic into the skin and subcutaneous tissue up to area of concern in the 4:00 left breast. Under ultrasound guidance, first a 18-gauge spinal extent of the large cystic area and aspiration yielded approximately 5 mL of white fluid which is sent for laboratory analysis. Subsequently, under ultrasound guidance, A 13-gauge vacuum-assisted mammotome Elite biopsy gun was used to obtain a total of 7 core samples. The more nodular isoechoic area just adjacent was targeted. Following this, a butterfly Hydromark clip was left at the site of sampling. The patient tolerated the procedure well without any immediate complication. The patient was kept in the radiology department for short stay after the procedure and then discharged home in stable condition. Postprocedure mammogram: The patient was transferred to mammography for physician ordered post procedure mammogram for clip placement verification. Post procedure mammogram shows clip at the 3:00 position. Impression: Successful, uncomplicated ultrasound guided aspiration and core biopsy of the palpable area of concern in the 4:00 left breast, cytology and full pathology results to follow. Fibrocystic changes suspected. Pathology Results: Result: Benign, Fibrocystic change. LEFT BREAST, FOUR O'CLOCK, ASPIRATE: Blood and degenerated cellular material with rare bland ductal and apocrine cells consistent with fibrocystic changes. LEFT BREAST, FOUR O'CLOCK, CORE BIOPSY: Fibrocystic changes including cyst wall with hemorrhage, acute and chronic inflammation, and rare microcalcifications. Pathology Description: Location: 4 o'clock. One clip placed for at combined BX/ASP area. Tissue Density: Left: The breast tissue is heterogeneously dense. This may lower the sensitivity of mammography. Overall Assessment: Benign Assessment: MG diagnostic mammo LT wo CAD. - Left: Benign, BI-RAD 2. Management: Diagnostic Breast Ultrasound of the left breast in 6 months. Electronically signed and approved by: Kassandra Thorpe M.D. Radiologist
== END ==
LOC: RADUSWWP 09:56
PROVIDERS: ATTEND Surgery
DX: R92.8 Other abnormal and inconclusive findings on diagnostic imaging of breast (principal); N60.12 Diffuse cystic mastopathy of left breast
CPT/HCPCS: 88305; 88173; 77065; 19000; 19083; A4648; 76942

== ENCOUNTER 2022-04-29 10:12 | Emergency (ER) | payer OTHER ==
[2022-04-29 10:29] VITALS: RESP 20; TEMP 98
[2022-04-29] MEDS ORDERED: ONDANSETRON 4 MG/2 ML VIAL IVP STA (11:24)
[2022-04-29] MEDS ORDERED: SODIUM CHLORIDE 0.9% 1,000 ML IV STA (11:24)
[2022-04-29] MEDS ORDERED: KETOROLAC 15 MG/ML 1 ML VIAL IVP STA (11:24)
[2022-04-29 11:56] LABS: Basophils % (A) 0 %; Eosinophils # (A) 0.1 k/uL (0-0.7); Eosinophils % (A) 1 %; HCT 45.3 % (34.0-46.0); HGB 14.6 gm/dL (11.4-16.0); Lymphocytes # (A) 1.3 k/uL (1.0-4.8); Lymphocytes % (A) 11 %; MCH 29.4 pg (25.0-35.0); MCHC 32.3 g/dL (31.0-37.0); MCV 91.1 fL (80.0-100.0); Mean Platelet Volume 6.5; Monocytes # (A) 0.5 k/uL (0-1.0); Monocytes % (A) 4 %; Neutrophils # (A) 10.2 k/uL (1.3-7.7); Neutrophils % (A) 83 %; Platelet Count 378 k/uL (150-450); RBC 4.97 m/uL (3.80-5.40); RDW 12.7 % (11.5-15.5); WBC 12.3 k/uL (3.8-10.6)
[2022-04-29 12:09] LABS: Appearance,Urine Cloudy (Clear); Bacteria,Urine Rare /hpf; Bilirubin,Urine Negative (Negative); Blood,Urine Negative (Negative); Color,Urine Yellow; Glucose,Urine (UA) Negative (Negative); Ketones,Urine Negative (Negative); Leukocyte Esterase,Urine Large (Negative); Mucus,Urine Occasional /hpf; Nitrite,Urine Negative (Negative); PH, Urine 7.5 (5.0-8.0); Protein,Urine Trace (Negative); RBC,Urine 5 /hpf (0-5); Specific Gravity,Urine 1.018 (1.001-1.035); Squamous Epithelial Cell,Urine 15 /hpf (0-4); Urobilinogen,Urine <2.0 mg/dL (<2.0); WBC,Urine 13 /hpf (0-5)
[2022-04-29 12:17] LABS: ALT 22 U/L (4-34); African American GFR (CKD) >90 (>60 ml/min/1.73 sqM); Albumin 4.6 g/dL (3.5-5.0); Anion Gap 11 mmol/L; Blood Urea Nitrogen 11 mg/dL (7-17); Calcium 9.3 mg/dL (8.4-10.2); Carbon Dioxide 24 mmol/L (22-30); Chloride 103 mmol/L (98-107); Glucose 89 mg/dL (74-99); Non-African American GFR(CKD) >90 (>60 ml/min/1.73 sqM); Sodium 138 mmol/L (137-145); Total Bilirubin 0.9 mg/dL (0.2-1.3); Total Protein 7.3 g/dL (6.3-8.2)
[2022-04-29 12:20] LABS: AST 38 U/L (14-36); Alkaline Phosphatase 84 U/L (38-126); Potassium 4.8 mmol/L (3.5-5.1)
--- NOTE | 2022-04-29 12:37 | CT ---
EXAMINATION TYPE: CT brain wo con DATE OF EXAM: 04/29/2022 COMPARISON: 04/18/2017 HISTORY: syncope, fell hitting head on tile floor CT DLP: 1111.[address] of the brain was performed. The ventricles, basal cisterns and sulci overlying the cerebral convexities demonstrate a normal appe arance. There is no evidence for intracranial hemorrhage or sulcal effacement. No mass effects are seen. Osseous calvarium is intact. If symptoms persist consider MRI as clinically warranted. IMPRESSION: 1. No acute intracranial process is seen at this time.
--- NOTE | 2022-04-29 12:42 | ED ---
Fall HPI - General Chief Complaint: Fall Stated Complaint: Syncope,hit head, & surgery complications Time Seen by Provider: 04/29/22 11:07 Source: patient, family, RN notes reviewed Mode of arrival: ambulatory - History of Present Illness Initial Comments: This is a 26-year-old female who presents to the emergency department for a syncopal episode. Patient had a left breast biopsy yesterday, and states that she has had a lot of bleeding since. The biopsy site was covered with Steri- Strips. While she was in the shower this morning, she started to feel very dizzy. She went to sit down on the toilet, and still did not feel good. She ended up having a syncopal episode and woke up on the floor. She was unconscious for a couple of minutes according to her partner. She has had syncopal episodes in the past, however they've been attributed to vasovagal events and they have never lasted this long. She hit her head, her right shoulder, and her right arm. Currently complaining of pain to the right shoulder, collar bone, and hand. She is unsure if she fell off of the toilet and hit her head, causing the loss of consciousness or if she lost consciousness before falling, and then hit her head, as she cannot remember the event. Denies any fevers, chills, sore throat, cough, dyspnea, chest pain, palpitations, abdominal pain, nausea, vomiting, diarrhea, or back pain. MD Complaint: fall Place Fall Occurred: home Loss of Consciousness: yes Prolonged Down Time?: yes Location: head, face Location - Extremities: Right: Shoulder, Arm - Related Data Home Medications Medication Instructions Recorded Confirmed Escitalopram Oxalate [Lexapro] 20 mg PO HS 08/31/21 04/29/22 Aspirin [[place] Aspirin EC] 81 mg PO HS 04/25/22 04/29/22 Vit No.179/Iron/Folic 1 tab PO HS 04/25/22 04/29/22 [ Tablet] Previous Rx's Medication Instructions Recorded Ibuprofen [Motrin] 800 mg PO Q8H PRN #20 tab 04/29/22 Sulfamethox-Tmp 800-160Mg [Bactrim 1 tab PO Q12HR 7 Days #14 tab 04/29/22 DS 800-160 mg] Allergies Allergy/AdvReac Type Severity Reaction Status Date / Time nickel Allergy Rash/Hives Verified 04/29/22 12:28 Review of Systems ROS Statement: Those systems with pertinent positive or pertinent negative responses have been documented in the HPI. ROS Other: All systems not noted in ROS Statement are negative. Past Medical History Past Medical History: No Reported History Additional Past Medical History / Comment(s): Hx Covid 05/27. Celiac disease dx -2021 History of Any Multi-Drug Resistant Organisms: MRSA Date of last positivie culture/infection: 08/2016 MDRO Source:: Skin on stomach and leg Past Surgical History: No Surgical Hx Reported Additional Past Surgical History / Comment(s): D&C, wisdom teeth., biopsy left breast. Past Anesthesia/Blood Transfusion Reactions: No Reported Reaction Additional Past Anesthesia/Blood Transfusion Reaction / Comment(s): Mom and sister PONV. Past Psychological History: Anxiety, Depression Smoking Status: Never smoker Past Alcohol Use History: None Reported Past Drug Use History: None Reported - Past Family History Mother Family Medical History: No Reported History Father Family Medical History: Blood Disorder, Deep Vein Thrombosis (DVT) Additional Family Medical History / Comment(s): Factor V. Sister(s) Family Medical History: Blood Disorder Additional Family Medical History / Comment(s): Factor V. General Exam Limitations: no limitations General appearance: alert, in no apparent distress Head exam: Present: atraumatic, normocephalic, normal inspection Respiratory exam: Present: normal lung sounds bilaterally. Absent: respiratory distress, wheezes, rales, rhonchi, stridor Cardiovascular Exam: Present: regular rate, normal rhythm, normal heart sounds. Absent: systolic murmur, diastolic murmur, rubs, gallop, clicks Extremities exam: Present: other (Tenderness to palpation over the right AC joint. No obvious deformities, swelling, or ecchymosis. Full active and passive range of motion at the shoulder and arm. Limited active and full passive ROM of the right 4th finger.) Neurological exam: Present: alert, oriented X3, CN II-XII intact Psychiatric exam: Present: normal affect, normal mood Skin exam: Present: warm, dry, other (0.5 cm left breast biopsy site on the inferior aspect of the left breast. There is a minor amount of drainage, which may be serous or purulent.) Course Vital Signs 04/29/22 04/29/22 04/29/22 10:26 11:57 11:58 Temperature 98 F Pulse Rate 63 Pulse Rate [ 76 Standing] Pulse Rate [ 56 L Supine] Respiratory 20 Rate Blood Pressure 102/69 Blood Pressure 115/73 [Standing] Blood Pressure 106/64 [Supine] O2 Sat by Pulse 100 Oximetry 04/29/22 14:08 Temperature Pulse Rate 55 L Pulse Rate [ Standing] Pulse Rate [ Supine] Respiratory 20 Rate Blood Pressure 113/78 Blood Pressure [Standing] Blood Pressure [Supine] O2 Sat by Pulse 99 Oximetry Medical Decision Making - Medical Decision Making This is a 26-year-old female who presents to the emergency department for a syncopal episode. Lab work reveals leukocytosis, which may be related to the recent surgery, however we cannot rule out the development of a postop infection. Given the syncopal episode with unclear circumstances, computed tomography scan of the brain was obtained, revealing no acute intracranial process. X-ray of the right shoulder, clavicle, and right hand were obtained, revealing no acute irregularities. Her Steri-Strips was saturated with dried blood. I removed this and replaced it with a new one. Upon examination of the biopsy site, there was minor drainage. This appeared to be serous fluid possibly mixed with purulence. A culture was obtained. Given the leukocytosis and drainage, patient placed on a 7 day course of Bactrim for possible infection. Additionally, her EKG did reveal bradycardia with sinus rhythm. Patient states that she has never been evaluated by a hogshead wrecker. Orthostatics were obtained and found to be negative. It is possible that she is having fluctuations in her heart rate contributing to these syncopal episodes. Her heart rate has gone from 50 BPM to the mid 80s just while lying in bed in the emergency department. Findings were discussed with the patient, in that she should discuss cardiology follow-up with her primary care provider. Patient states that with her insurance she can go straight to cardiology and will contac t them for a follow-up appointment. She was also given a prescription for 800 mg of ibuprofen to help with pain relief. Return precautions reviewed in depth, the patient is instructed to return to the emergency department with any new, worsening, or concerning symptoms. Patient v erbalized understanding. This case was discussed in detail with the attending ED physician. Presentation, findings, and treatment plan discussed in detail as well. - Lab Data Result diagrams: 04/29/22 11:47 04/29/22 11:47 Lab Results 04/29/22 04/29/22 04/29/22 Range/Units 11:47 11:47 11:49 WBC 12.3 H (3.8-10.6) k/uL RBC 4.97 (3.80-5.40) m/uL Hgb 14.6 (11.4-16.0) gm/dL Hct 45.3 (34.0-46.0) % MCV 91.1 (80.0-100.0) fL MCH 29.4 (25.0-35.0) pg MCHC 32.3 (31.0-37.0) g/dL RDW 12.7 (11.5-15.5) % Plt Count 378 (150-450) k/uL MPV 6.5 Neutrophils % 83 % Lymphocytes % 11 % Monocytes % 4 % Eosinophils % 1 % Basophils % 0 % Neutrophils # 10.2 H (1.3-7.7) k/uL Lymphocytes # 1.3 (1.0-4.8) k/uL Monocytes # 0.5 (0-1.0) k/uL Eosinophils # 0.1 (0-0.7) k/uL Basophils # 0.0 (0-0.2) k/uL Sodium 138 (137-145) mmol/L Potassium 4.8 (3.5-5.1) mmol/L Chloride 103 (98-107) mmol/L Carbon Dioxide 24 (22-30) mmol/L Anion Gap 11 mmol/L BUN 11 (7-17) mg/dL Creatinine 0.71 (0.52-1.04) mg/dL Est GFR (CKD-EPI)AfAm >90 (>60 ml/min/1.73 sqM) Est GFR (CKD-EPI)NonAf >90 (>60 ml/min/1.73 sqM) Glucose 89 (74-99) mg/dL Calcium 9.3 (8.4-10.2) mg/dL Total Bilirubin 0.9 (0.2-1.3) mg/dL AST 38 H (14-36) U/L ALT 22 (4-34) U/L Alkaline Phosphatase 84 (38-126) U/L Total Protein 7.3 (6.3-8.2) g/dL Albumin 4.6 (3.5-5.0) g/dL TSH 2.400 (0.465-4.680) mIU/L Urine Color Yellow Urine Appearance Cloudy H (Clear) Urine pH 7.5 (5.0-8.0) Ur Specific [place] 1.018 (1.001-1.035) Urine Protein Trace H (Negative) Urine Glucose (UA) Negative (Negative) Urine Ketones Negative (Negative) Urine Blood Negative (Negative) Urine Nitrite Negative (Negative) Urine Bilirubin Negative (Negative) Urine Urobilinogen <2.0 (<2.0) mg/dL Ur Leukocyte Esterase Large H (Negative) Urine RBC 5 (0-5) /hpf Urine WBC 13 H (0-5) /hpf Ur Squamous Epith Cells 15 H (0-4) /hpf Urine Bacteria Rare H (None) /hpf Urine Mucus Occasional H (None) /hpf Urine HCG, Qual (Not Detectd) 04/29/22 Range/Units 11:49 WBC (3.8-10.6) k/uL RBC (3.80-5.40) m/uL Hgb (11.4-16.0) gm/dL Hct (34.0-46.0) % MCV (80.0-100.0) fL MCH (25.0-35.0) pg MCHC (31.0-37.0) g/dL RDW (11.5-15.5) % Plt Count (150-450) k/uL MPV Neutrophils % % Lymphocytes % % Monocytes % % Eosinophils % % Basophils % % Neutrophils # (1.3-7.7) k/uL Lymphocytes # (1.0-4.8) k/uL Monocytes # (0-1.0) k/uL Eosinophils # (0-0.7) k/uL Basophils # (0-0.2) k/uL Sodium (137-145) mmol/L Potassium (3.5-5.1) mmol/L Chloride (98-107) mmol/L Carbon Dioxide (22-30) mmol/L Anion Gap mmol/L BUN (7-17) mg/dL Creatinine (0.52-1.04) mg/dL Est GFR (CKD-EPI)AfAm (>60 ml/min/1.73 sqM) Est GFR (CKD-EPI)NonAf (>60 ml/min/1.73 sqM) Glucose (74-99) mg/dL Calcium (8.4-10.2) mg/dL Total Bilirubin (0.2-1.3) mg/dL AST (14-36) U/L ALT (4-34) U/L Alkaline Phosphatase (38-126) U/L Total Protein (6.3-8.2) g/dL Albumin (3.5-5.0) g/dL TSH (0.465-4.680) mIU/L Urine Color Urine Appearance (Clear) Urine pH (5.0-8.0) Ur Specific [place] (1.001-1.035) Urine Protein (Negative) Urine Glucose (UA) (Negative) Urine Ketones (Negative) Urine Blood (Negative) Urine Nitrite (Negative) Urine Bilirubin (Negative) Urine Urobilinogen (<2.0) mg/dL Ur Leukocyte Esterase (Negative) Urine RBC (0-5) /hpf Urine WBC (0-5) /hpf Ur Squamous Epith Cells (0-4) /hpf Urine Bacteria (None) /hpf Urine Mucus (None) /hpf Urine HCG, Qual Not Detected (Not Detectd) - EKG Data EKG Comments: Sinus bradycardia. Ventricular rate 50 bpm, NJ interval 156 ms, QRS duration 94 ms, QTC 427 ms. - Radiology Data Radiology results: report reviewed, image reviewed Disposition Clinical Impression: Syncope, Postoperative pain, Bradycardia Disposition: HOME SELF-CARE Instructions (If sedation given, give patient instructions): Cellulitis (ED), Syncope (ED), Concussion (ED) Additional Instructions: Return to the emergency department with any new, worsening, or concerning symptoms. Take the antibiotic as prescribed for 7 days. Alternate with ibuprofen and Tylenol as needed for pain relief. Continue to apply ice to the breast as well. Contact cardiology for an appointment regarding the low heart rate and syncopal episodes. Prescriptions: Sulfamethox-Tmp 800-160Mg [Bactrim DS 800-160 mg] 1 tab PO Q12HR 7 Days #14 tab Ibuprofen [Motrin] 800 mg PO Q8H PRN #20 tab PRN Reason: Pain Is patient prescribed a controlled substance at d/c from ED?: No Referrals: Rolf Art III, MD [Primary Care Provider] - 1-2 days Asaf Rose MD [STAFF PHYSICIAN] - 1-2 days
--- NOTE | 2022-04-29 12:46 | XR ---
EXAMINATION TYPE: XR hand complete RT DATE OF EXAM: 04/29/2022 12:42 PM INDICATION: Patient age:Female; 26 years old; Reason for study: Pain from fall; [facility]. COMPARISON: None TECHNIQUE: Frontal, lateral and oblique views of the right hand were obtained. FINDINGS: Normal alignment of the visualized joints. No acute osseous pathology is identified. No e vidence of soft tissue swelling. IMPRESSION: No acute osseous pathology.
--- NOTE | 2022-04-29 12:48 | XR ---
EXAMINATION TYPE: XR clavicle RT DATE OF EXAM: 04/29/2022 12:42 PM INDICATION: Patient age:Female; 26 years old; Reason for study: Pain from fall; [facility]. COMPARISON: Right shoulder radiograph the same date. TECHNIQUE: AP and cephalic tilt views were obtained of the right clavicle. FINDINGS: No evidence of acute or chronic osseous pathology, joint dislocation or soft tissue swelling. IMPRESSION: Normal right clavicle.
--- NOTE | 2022-04-29 12:48 | XR ---
EXAMINATION TYPE: XR shoulder complete RT DATE OF EXAM: 04/29/2022 12:42 PM INDICATION: Patient age:Female; 26 years old; Reason for study: Pain from fall; COMPARISON: Right clavicle radiograph the same date. TECHNIQUE: The right shoulder was examined in external rotated, internally rotated and scapular Y pr ojections. . FINDINGS: No evidence of acute osseous pathology, joint dislocation, or soft tissue swelling. The remaining por tions of the visualized chest are unremarkable. IMPRESSION: No acute osseous pathology.
[2022-04-29] MEDS ORDERED: ACET/COD 300 MG/30 MG STARTER PACK 6 TAB BTL PO STA (13:41)
[2022-04-29 14:09] VITALS: BP 113/78; PULSE 55
== END 2022-04-29 14:41 | disposition home or self-care (01) ==
LOC: EC 10:12
DX: R55 Syncope and collapse (principal); G89.18 Other acute postprocedural pain; R00.1 Bradycardia, unspecified; F41.9 Anxiety disorder, unspecified; F32.A Depression, unspecified; Z91.048 Other nonmedicinal substance allergy status; Z79.82 Long term (current) use of aspirin
CPT/HCPCS: 36415; 93005; 80053; 84443; 85025; 81001; 81025; 87070; 87086; 87205; 73000; 73030; 73130; 70450; 99284; 96374; 96375; 96361; J2405; J1885

== ENCOUNTER → 2022-05-12 | Outpatient (CLI) | payer OTHER ==
--- NOTE | 2022-05-12 06:59 | CT ---
EXAMINATION TYPE: CT brain wo con DATE OF EXAM: 05/12/2022 COMPARISON: Prior CT April 29, 2022 and older studies. HISTORY: follow up from concussion due to fall x [address] DLP: 1121 mGycm. Automated Exposure Control for Dose Reduction was Utilized. TECHNIQUE: CT scan of the head is performed without contrast. FINDINGS: There is no acute intracranial hemorrhage, mass effect, or midline shift identified. The ventricles and sulci are within normal limits in size. Amezquita-white matter differentiation is maintain ed. The calvarium is intact. The globes are intact and the visualized sinuses are clear. IMPRESSION: Unremarkable study. No significant change from prior.
--- NOTE | 2022-05-12 07:21 | XR ---
EXAMINATION TYPE: XR Hip RT and AP Pelvis DATE OF EXAM: 05/12/2022 6:48 AM INDICATION: Patient age:Female; 26 years old; Reason for study: M25.561 pain R hip; COMPARISON: Lateral hip radiograph 08/20/2014. TECHNIQUE: The right hip was examined in frontal and frog-leg projections with additional AP pelvis. FINDINGS: No evidence of any acute osseous pathology, joint dislocation, or soft tissue swelling. No aggressive osseous lesion. SI joints appear intact. IMPRESSION: No acute osseous pathology.
== END | disposition home or self-care (01) ==
LOC: RADCTMAIN 06:18
PROVIDERS: ATTEND Family Medicine
DX: S06.0X1D Concussion with loss of consciousness of 30 minutes or less, subsequent encounter (principal); M25.561 Pain in right knee
CPT/HCPCS: 70450; 73502

== ENCOUNTER → 2022-06-01 | Outpatient (CLI) | payer OTHER ==
[2022-06-01 19:23] LABS: T4, Free (Free Thyroxine) 1.04 ng/dL (0.800-1.800)
== END | disposition home or self-care (01) ==
LOC: LABWHC1 11:07
PROVIDERS: ATTEND Psychiatry & Neurology Neurology
DX: R41.3 Other amnesia (principal); R53.83 Other fatigue
CPT/HCPCS: 36415; 82607; 84439; 84443; 84481

== ENCOUNTER → 2022-10-27 | Outpatient (CLI) | payer OTHER | END | disposition home or self-care (01) | LOC: LABWHC1 07:11 | PROVIDERS: ATTEND Obstetrics & Gynecology | DX: N92.5 Other specified irregular menstruation (principal) | CPT/HCPCS: 36415; 84144; 84702 ==

== ENCOUNTER → 2023-01-26 | Outpatient (CLI) | payer OTHER ==
--- NOTE | 2023-01-26 09:21 | MM ---
Reason for Exam: Additional evaluation requested from prior study. Last screening mammogram was performed 9 month(s) ago. Patient History: Menarche at age 11. First Full-Term at age 19. Premenopausal. Patient has history of breast feeding. 04/28/2022, Benign US biopsy breast VAD LT on the left side. 04/28/2022, US breast aspiration single LT on the Left side. Maternal grandmother had breast cancer, age 50. Maternal aunt had breast cancer, age 40. Maternal aunt had breast cancer, age 60. Maternal aunt had breast cancer, age 58. Maternal cousin had breast cancer, age 39. Maternal cousin had breast cancer, age 41. Last menstrual period: 01/23/2023 Prior Study Comparison: 04/22/2022 Bilateral MG diagnostic mammo w CAD [facility], [facility]. 04/28/2022 Left MG diagnostic mammo LT wo CAD., [facility]. Tissue Density: The breast tissue is heterogeneously dense. This may lower the sensitivity of mammography. Findings: Analyzed By CAD. On 3-D images, we note a 1.1 cm circumscribed low density mass 11:00 right breast posteriorly. A benign cyst is suspected given characteristics. Otherwise, no significant mass, suspicious microcalcification, or other discrete abnormality is seen. Overall Assessment: Incomplete: need additional imaging evaluation, BI-RAD 0 Management: Diagnostic Breast Ultrasound of both breasts. Electronically signed and approved by: Kassandra Thorpe M.D. Radiologist
--- NOTE | 2023-01-26 09:51 | USB ---
Reason for Exam: Clinical finding. Patient History: Menarche at age 11. First Full-Term at age 19. Premenopausal. Patient has history of breast feeding. 04/28/2022, Benign US biopsy breast VAD LT on the left side. 04/28/2022, US breast aspiration single LT on the Left side. Maternal grandmother had breast cancer, age 50. Maternal aunt had breast cancer, age 40. Maternal aunt had breast cancer, age 60. Maternal aunt had breast cancer, age 58. Maternal cousin had breast cancer, age 39. Maternal cousin had breast cancer, age 41. Technique: Method: Whole Breast Handheld. Prior Study Comparison: 04/22/2022 Bilateral MG diagnostic mammo w CAD [facility], [facility]. 04/28/2022 Left MG diagnostic mammo LT wo CAD., [facility]. Findings: The whole breast of both breasts, the axilla of both breasts and the retroareolar of both breasts were scanned. A complete US of all four quadrants of both breasts, axilla, retro-areolar region were reviewed. Right: * Possible complex cyst measuring 1.2 x 0.7 x 0.9 cm at the 3:00 position, 5 cm from the nipple. Six-month follow-up recommended. * Extensive fibrocystic change is present extending from the o'clock to 12:00 position of the right breast. Cystic areas measure up to 3.4 cm. * Suspect a debris/fluid distended duct with a caliber up to 9 mm located behind the nipple. This can be reassessed in 6 months. * Prominent, borderline thickened but otherwise, benign-appearing, nonenlarged lymph node in the right axilla measuring 8 mm short axis. Likely reactive/post inflammatory. Left: * Lobulated hypoechoic mass measuring 10 x 9 x 7 mm located 1:00 position, 7 cm from the nipple. Some edge shadowing is noted. This may represent a lobulated fibroadenoma but other etiology is not excluded. Tissue sampling recommended. * Questionable previous biopsy clip at the 2:00 position. * No other solid or cystic lesion. * Borderline thickened but otherwise benign-appearing nonenlarged lymph node is noted in the axilla, similar to the contralateral side, again, likely reactive/post inflammatory. Overall Assessment: Suspicious, BI-RAD 4 Management: Ultrasound Core Biopsy of the left breast. Now. Diagnostic Breast Ultrasound of the right breast in 6 months. Results were given to the patient verbally at the time of exam. Electronically signed and approved by: Kassandra Thorpe M.D. Radiologist
== END | disposition home or self-care (01) ==
LOC: RADMAMWWP 07:31
PROVIDERS: ATTEND Surgery
DX: N63.10 Unspecified lump in the right breast, unspecified quadrant (principal); Z80.3 Family history of malignant neoplasm of breast
CPT/HCPCS: 77066; 76641; G0279; 77062

== ENCOUNTER → 2023-02-06 | Day surgery (SDC) | payer OTHER ==
--- NOTE | 2023-02-09 13:23 | MM ---
Reason for Exam: Post Procedure Mammogram. Last screening mammogram was performed less than 1 month ago. Patient History: Menarche at age 11. First Full-Term at age 19. Premenopausal. Patient has history of breast feeding. 04/28/2022, Benign US biopsy breast VAD LT on the left side. 04/28/2022, US breast aspiration single LT on the Left side. Maternal grandmother had breast cancer, age 50. Maternal aunt had breast cancer, age 40. Maternal aunt had breast cancer, age 60. Maternal aunt had breast cancer, age 58. Maternal cousin had breast cancer, age 39. Maternal cousin had breast cancer, age 41. Prior Study Comparison: 04/22/2022 Bilateral MG diagnostic mammo w CAD CAR[facility], [facility]. 04/28/2022 Left MG diagnostic mammo LT wo CAD., [facility]. 01/26/2023 Bilateral MG 3D diag mammo w/cad CAR[facility], [facility]. Tissue Density: Left: The breast tissue is heterogeneously dense. This may lower the sensitivity of mammography. Pathology Description: Location: 1 o'clock, upper outer quadrant. Marker Left Behind. Needle Type: Mammotome Cores: 5 Skin Nicks: 1 Gauge: 13 The procedure of ultrasound guided core biopsy was explained to the patient. Benefits, alternatives, and risks were discussed. An informed consent was then obtained. A timeout was performed. The patient was placed in supine positioning for imaging and for the procedure. The overlying skin was prepped and draped in usual sterile fashion. Lidocaine was used as anesthetic into the skin and subcutaneous tissue up to area of concern in the left breast. A small skin sharmin was made with surgical scalpel. Under ultrasound guidance, a 12-gauge vacuum assisted biopsy gun device was used to obtain 5 core samples. A biopsy clip was left in lesion. Hydromark top core marker was placed. The patient tolerated the procedure well without any immediate complication. The patient was kept in the radiology department for short stay after the procedure and then discharged home in stable condition. Postprocedure mammogram: The patient was transferred to mammography for physician ordered post procedure mammogram for clip placement verification. Impression: Successful ultrasound guided core biopsy of area of concern in the left breast, full pathology results to follow. Recommendations: 1. Recommendations are pending pathology results. Pathology Results: Result: Benign, Fibrocystic change. LEFT BREAST AT 1:00, ULTRASOUND GUIDED NEEDLE CORE BIOPSY: Fibrocystic changes including focal fibrosis/scar and inflammation. Negative for malignancy. Overall Assessment: Benign Assessment: MG diagnostic mammo LT wo CAD. - Left: Benign, BI-RAD 2. Management: Diagnostic Breast Ultrasound of the left breast in 6 months. Electronically signed and approved by: Aki Keane D.O. Radiologis
== END ==
LOC: RADUSWWP 10:20
PROVIDERS: ATTEND Surgery
DX: N60.12 Diffuse cystic mastopathy of left breast (principal); Z80.3 Family history of malignant neoplasm of breast
CPT/HCPCS: 88305; 77065; 19083; A4648

== ENCOUNTER → 2023-06-01 | Outpatient (CLI) | payer OTHER ==
--- NOTE | 2023-06-01 09:06 | USB ---
Reason for Exam: Follow-up at short interval from prior study. Patient History: Menarche at age 11. First Full-Term at age 19. Premenopausal. Patient has history of breast feeding. 02/06/2023, Benign US biopsy breast VAD LT on the left side. 04/28/2022, Benign US biopsy breast VAD LT on the left side. 04/28/2022, US breast aspiration single LT on the Left side. Maternal grandmother had breast cancer, age 50. Maternal aunt had breast cancer, age 40. Maternal aunt had breast cancer, age 60. Maternal aunt had breast cancer, age 58. Maternal cousin had breast cancer, age 39. Maternal cousin had breast cancer, age 41. Technique: Method: Targeted. Prior Study Comparison: 04/28/2022 Left MG diagnostic mammo LT wo CAD., [facility]. 01/26/2023 Bilateral MG 3D diag mammo w/cad [facility], [facility]. 02/06/2023 Left MG diagnostic mammo LT wo CAD., [facility]. Findings: The whole breast of the right breast, the upper outer quadrant of the left breast, the axilla of both breasts and the retroareolar of both breasts were scanned. Technique utilized:US breast limited BILAT Image; Ultrasound imaging of: All 4 quadrants, the retroareolar region and axilla. Right breast complex fluid collections without increased vascularity peripherally posttraumatic stromal/hematoma. These are not significantly changed from 01/26/2023. Stable left breast lesion was previously biopsied at 1:00 7 cm nipple now measuring up to 10 x 10 x 6 mm. No new lesions are seen bilaterally. Overall Assessment: Probably benign, BI-RAD 3 Management: Diagnostic Breast Ultrasound of the right breast in 6 months. Follow-up for complicated cystic lesions in the right breast. These are not resolved since 01/26/2023. At that time consideration for MRI could be considered for further evaluation of cystic change. Clinical correlation for infection is recommended. A clinical breast exam by your physician is recommended on an annual basis and results should be correlated with mammographic findings. This exam should not preclude additional follow-up of suspicious palpable abnormalities. Results were given to the patient verbally at the time of exam. Electronically signed and approved by: Jose Hall DO
== END | disposition home or self-care (01) ==
LOC: RADUSWWP 07:31
PROVIDERS: ATTEND Student in an Organized Health Care Education/Training Program
DX: N64.89 Other specified disorders of breast (principal); Z80.3 Family history of malignant neoplasm of breast

== ENCOUNTER 2024-02-06 06:04 | Inpatient (IN) | payer BC ==
[2024-02-06] MEDS ORDERED: CARBOPROST TROMETHAMINE 250 MCG/ML 1 ML AMP IM PRN (06:14)
[2024-02-06] MEDS ORDERED: OXYTOCIN 10 UNIT/ML 1 ML VIAL IM PRN (06:14)
[2024-02-06] MEDS ORDERED: LIDOCAINE 0.5% (PF) 5 MG/ML (50 ML SDV) SQ PRN (06:14)
[2024-02-06] MEDS ORDERED: TRANEXAMIC 1,000 MG/100ML-NACL 1,000 MG in EMPTY BAG 1 BAG IV PRN (06:14)
[2024-02-06] MEDS ORDERED: TERBUTALINE 1 MG/ML VIAL SQ PRN (06:14)
[2024-02-06] MEDS ORDERED: METHYLERGONOVINE 0.2 MG/ML 1 ML AMP IM PRN (06:14)
[2024-02-06] MEDS ORDERED: miSOPROStoL 200 MCG TAB PO PRN (06:14)
[2024-02-06] MEDS: LACTATED RINGERS 1,000 ML IV SCH (06:36)
[2024-02-06] MEDS: OXYTOCIN 30 UNITS/500 ML NS 30 UNIT in SALINE 1 500ML.BAG IV SCH ×2 (06:39→23:09)
[2024-02-06 06:51] LABS: Basophils # (A) 0.1 k/uL (0-0.2); Basophils % (A) 1 %; Eosinophils # (A) 0.2 k/uL (0-0.7); Eosinophils % (A) 2 %; HCT 41.1 % (34.0-46.0); HGB 13.8 gm/dL (11.4-16.0); Lymphocytes # (A) 2.2 k/uL (1.0-4.8); Lymphocytes % (A) 23 %; MCHC 33.6 g/dL (31.0-37.0); MCV 92.2 fL (80.0-100.0); Mean Platelet Volume 7.2; Monocytes # (A) 0.6 k/uL (0-1.0); Monocytes % (A) 6 %; Neutrophils # (A) 6.3 k/uL (1.3-7.7); Neutrophils % (A) 66 %; Platelet Count 297 k/uL (150-450); RBC 4.45 m/uL (3.80-5.40); RDW 13.6 % (11.5-15.5); WBC 9.5 k/uL (3.8-10.6)
--- NOTE | 2024-02-06 08:35 | P.HPOB ---
History of Present Illness H&P Date: 02/06/24 Chief Complaint: 40+ weeks, induction The patient is a 28-year-old 4 para 1-0-2-1 admitted at 40-2/7 weeks as established by last menstrual period and confirmed by 20-week ultrasound. She is admitted for postdates induction of labor with all signs reassuring, category 1 heart rate tracing. Her has been uncomplicated and group B strep status is negative. Obstetrical history: 4 para 1-0-2-1 with 1 term vaginal delivery without complications. Current statistics are listed in history of present illness. EDC of 02/04/2024 was established by last menstrual period and confirmed by 20-week ultrasound. Laboratory workup demonstrates a blood type of B+ with a negative antibody screen. Rubella status is immune. The remainder of the laboratory workup was within normal limits. Early Glucola as well as second trimester Glucola were normal and group B strep status is negative. Gynecologic history: Unremarkable with no history of any infections to include STDs. Review of Systems Review of systems is confined to history of present illness. Past Medical History Past Medical History: No Reported History Additional Past Medical History / Comment(s): Hx Covid 05/27. Celiac disease dx -2021, Hyperthyroid History of Any Multi-Drug Resistant Organisms: MRSA Date of last positivie culture/infection: 08/2016 MDRO Source:: Skin on stomach and leg Past Surgical History: No Surgical Hx Reported Additional Past Surgical History / Comment(s): D&C, wisdom teeth., biopsy left breast. Dilation and curettage 2020 Past Anesthesia/Blood Transfusion Reactions: No Reported Reaction Additional Past Anesthesia/Blood Transfusion Reaction / Comment(s): Mom and sister PONV. Past Psychological History: Anxiety, Depression Additional Psychological History / Comment(s): depression Smoking Status: Never smoker Past Alcohol Use History: None Reported Past Drug Use History: None Reported - Past Family History Mother Family Medical History: No Reported History Father Family Medical History: Blood Disorder, Deep Vein Thrombosis (DVT) Additional Family Medical History / Comment(s): Factor V. Sister(s) Family Medical History: Blood Disorder Additional Family Medical History / Comment(s): Factor V. Medications and Allergies Home Medications Medication Instructions Recorded Confirmed Type Aspirin [Adult Low Dose Aspirin EC] 81 mg PO DAILY 02/06/24 02/06/24 History Vit No.179/Iron/Folic 1 each PO DAILY 02/06/24 02/06/24 History [ Tablet] Allergies Allergy/AdvReac Type Severity Reaction Status Date / Time gluten Allergy Unknown Verified 05/08/23 19:01 nickel Allergy Rash/Hives Verified 05/08/23 19:01 Exam Vital Signs Temp Pulse Resp BP Pulse Ox 02/06/24 06:05 97.5 F L 85 16 124/74 99 Intake and Output 02/05/24 02/06/24 02/06/24 22:59 06:59 14:59 Other: Weight 107.501 kg In general, this is a well-developed, well-nourished white female in no acute distress. Her heart has a regular rhythm and rate without murmur. Her lungs are clear to auscultation bilaterally in all castro. Her abdomen is gravid, nondistended, has normal active bowel sounds, is soft, nontender, and without any palpable masses aside from the uterine fundus. Her extremities are without any cyanosis, clubbing, or edema and are nontender to palpation bilaterally. D igital cervical examination demonstrates her cervix to be 1+ centimeters dilated, 60% effaced, with a vertex and presentation at -2 station. Artificial rupture of membranes is carried out demonstrating clear fluid. Results Result Diagrams: 02/06/24 06:30 Assessment and Plan (1) Term Current Visit: Yes Status: Acute Code(s): Z34.80 - ENCOUNTER FOR SUPRVSN OF NORMAL , UNSP TRIMESTER SNOMED Code(s): 95347030 Plan: The patient has been admitted for induction of labor. Pitocin augmentation has been started and she has undergone artificial rupture of membranes. She will have close maternal and surveillance and expectant management will be practiced. She is a good candidate for higher IV, epidural, or nitrous analgesia, whichever she may choose.
[2024-02-06] MEDS: NALBUPHINE 10 MG/ML (10 ML MDV) IV PRN (17:55)
[2024-02-06] MEDS ORDERED: diphenhydrAMINE 25 MG CAP PO PRN (20:37)
[2024-02-06] MEDS ORDERED: diphenhydrAMINE 50 MG CAP PO PRN (20:37)
[2024-02-06] MEDS ORDERED: BENZOCAINE/MENTHOL SPRAY 1 GM/SPRAY AEROSOL TOPICAL PRN (20:37)
[2024-02-06] MEDS ORDERED: HYDROCORTISONE 2.5% RECTAL CREAM 30 GM TUBE RECTAL PRN (20:37)
[2024-02-06] MEDS ORDERED: HYDROcodone/APAP 5-325MG 1 EACH TAB PO PRN (20:37)
[2024-02-06] MEDS ORDERED: HYDROcodone/APAP 7.5-325MG 1 EACH TAB PO PRN (20:37)
[2024-02-06] MEDS ORDERED: LANOLIN CREAM 1 GM TUBE TOPICAL PRN (20:37)
[2024-02-06] MEDS ORDERED: SIMETHICONE 80 MG CHEWABLE PO PRN (20:37)
[2024-02-06] MEDS ORDERED: ZOLPIDEM 5 MG TAB PO PRN (20:37)
[2024-02-06] MEDS ORDERED: ACETAMINOPHEN TAB 325 MG TAB PO PRN (20:37)
[2024-02-06] MEDS ORDERED: diphenhydrAMINE 50 MG/ML 1 ML VIAL IVP PRN ×2 (20:37)
--- NOTE | 2024-02-06 20:40 | P.PROBDLV ---
Vaginal Delivery Note - . Vaginal Delivery Note: The patient is a 28-year-old 4 para 1-0-2-1 admitted at 40-2/7 weeks by good dating parameters. She is admitted for postdates induction of labor with all signs reassuring. Her has been entirely uncomplicated and group B strep status is negative. On labor and delivery, all signs were reassuring with a category 1 heart rate tracing. She had Pitocin started and underwent artificial rupture of membranes for clear fluid. She made relatively slow progress through both the latent and active phase of labor but ultimately progressed to complete or after she pushed for approximately 10 to 15 minutes to a normal spontaneous vaginal delivery of a viable 6 pound 15 ounce baby girl with Apgars of 8 at 1 minute and 9 at 5 minutes delivered in the direct occiput anterior position. There were 2 nuchal cords which were too tight to be reduced on the perineum and were reduced following delivery. The placenta was delivered spontaneously, intact, and grossly normal though the membranes were somewhat fragmented. There was a grossly normal, centrally inserted three-vessel cord. There were no lacerations of the perineum, vagina, or cervix. Estimated blood loss for the case was approximately 200 mL. There were no complications. Both mother and infant are resting comfortably in recovery.
[2024-02-06] MEDS: IBUPROFEN 600 MG TAB PO PRN (22:46)
[2024-02-07] MEDS: SENNOSIDES-DOCUSATE SODIUM 1 EACH TAB PO SCH (08:09)
[2024-02-07 08:30] VITALS: RESP 16
[2024-02-07] MEDS: ONDANSETRON ODT 4 MG TAB PO STA (08:37)
--- NOTE | 2024-02-07 08:40 | P.DS ---
Providers Date of admission: 02/06/24 06:04 Expected date of discharge: 02/07/24 Attending physician: Juan Farmer Primary care physician: Stated None - Discharge Diagnosis(es) (1) Term Current Visit: Yes Status: Acute (2) Normal spontaneous vaginal delivery Current Visit: Yes Status: Acute Hospital Course: Patient is a 28-year-old 4 para 1-0-2-1 admitted at 40-2/7 weeks by good dating parameters. She is admitted for postdates induction of labor with all signs reassuring. Her was uncomplicated and group B strep status is negative. On labor and delivery, she had Pitocin started and underwent artificial rupture of membranes. She made relatively slow progress through the latent and active phases of labor but did ultimately progressed to complete and pushed to a normal spontaneous vaginal delivery of a viable 6 pound 15 ounce baby girl with Apgars of 8 at 1 minute and 9 at 5 minutes. Her course was unremarkable with vital signs remaining stable and her temperature was afebrile throughout. She was deemed stable for discharge on day #1 and was discharged home to follow-up in the office in 6 weeks routinely. Discharge instructions included calling for any significantly increased bleeding or foul-smelling lochia, significantly increased fever or abdominal pain, perineal complaints, breast complaints, or anything else that concerned her. She was additionally instructed to have nothing in the vagina for at least 6 w eeks time to include intercourse. She understood her instructions and agrees to follow-up as noted above. Discharge medications included continued vitamins as she has opted to breast-feed. She was additionally to take [id number] analgesic pain medications as needed. Maternal blood type is B+ and rubella status is immune. Procedures: #1. Pitocin induction #2. Artificial rupture of membranes #3. Normal spontaneous vaginal delivery Patient Condition at Discharge: Stable Plan - Discharge Summary New Discharge Prescriptions: No Action Vit No.179/Iron/Folic [ Tablet] 1 each PO DAILY Aspirin [Adult Low Dose Aspirin EC] 81 mg PO DAILY Discharge Medication List Aspirin [Adult Low Dose Aspirin EC] 81 mg PO DAILY 02/06/24 [History] Vit No.179/Iron/Folic [ Tablet] 1 each PO DAILY 02/06/24 [History] Follow up Appointment(s)/Referral(s): Juan Farmer MD [STAFF PHYSICIAN] - 03/19/24 11:00 am
[2024-02-07 08:57] LABS: Basophils % (A) 0 %; Eosinophils # (A) 0.1 k/uL (0-0.7); Eosinophils % (A) 0 %; HCT 37.3 % (34.0-46.0); HGB 12.4 gm/dL (11.4-16.0); Lymphocytes # (A) 2.1 k/uL (1.0-4.8); Lymphocytes % (A) 13 %; MCH 30.4 pg (25.0-35.0); MCHC 33.2 g/dL (31.0-37.0); MCV 91.5 fL (80.0-100.0); Mean Platelet Volume 7.4; Monocytes # (A) 0.9 k/uL (0-1.0); Monocytes % (A) 5 %; Neutrophils # (A) 12.7 k/uL (1.3-7.7); Neutrophils % (A) 80 %; Platelet Count 271 k/uL (150-450); RBC 4.07 m/uL (3.80-5.40); RDW 13.6 % (11.5-15.5); WBC 15.9 k/uL (3.8-10.6)
[2024-02-07 19:39] VITALS: BP 121/79; PULSE 81; TEMP 98
== END 2024-02-07 23:50 | disposition home or self-care (01) | DRG 807 ==
LOC: 4FBP 06:04
PROVIDERS: ADMIT Obstetrics & Gynecology; ATTEND Obstetrics & Gynecology
PROC: 10E0XZZ Delivery of Products of Conception, External Approach (ICD-10-PCS; principal; 2024-02-06)
PROC: 10907ZC Drainage of Amniotic Fluid, Therapeutic from Products of Conception, Via Natural or Artificial Opening (ICD-10-PCS; 2024-02-06)
PROC: 3E033VJ Introduction of Other Hormone into Peripheral Vein, Percutaneous Approach (ICD-10-PCS; 2024-02-06)
DX: O48.0 Post-term pregnancy (principal); Z37.0 Single live birth; K90.0 Celiac disease; O69.81X0 Labor and delivery complicated by cord around neck, without compression, not applicable or unspecified; O99.62 Diseases of the digestive system complicating childbirth; Z3A.40 40 weeks gestation of pregnancy; Z86.16 Personal history of COVID-19; Z86.14 Personal history of Methicillin resistant Staphylococcus aureus infection; Z79.82 Long term (current) use of aspirin; Z91.048 Other nonmedicinal substance allergy status; Z87.59 Personal history of other complications of pregnancy, childbirth and the puerperium
CPT/HCPCS: 85025; 86850; 86900; 86901

== ENCOUNTER → 2024-06-26 | Outpatient (CLI) | payer OTHER ==
--- NOTE | 2024-06-26 08:39 | USB ---
Reason for Exam: Follow-up at short interval from prior study. Patient History: Menarche at age 11. First Full-Term at age 19. Premenopausal. Patient has history of breast feeding. 02/06/2023, Benign US biopsy breast VAD LT on the left side. 04/28/2022, Benign US biopsy breast VAD LT on the left side. 04/28/2022, US breast aspiration single LT on the Left side. Maternal grandmother had breast cancer, age 50. Maternal aunt had breast cancer, age 40. Maternal aunt had breast cancer, age 60. Maternal aunt had breast cancer, age 58. Maternal cousin had breast cancer, age 39. Maternal cousin had breast cancer, age 41. Sister had breast cancer, age 37. Prior Study Comparison: 04/28/2022 Left MG diagnostic mammo LT wo CAD., [facility]. 01/26/2023 Bilateral MG 3D diag mammo w/cad CAROL, [facility]. 02/06/2023 Left MG diagnostic mammo LT wo CAD., [facility]. 06/01/2023 Bilateral US breast limited BILAT, [facility]. Findings: The upper outer quadrant of the left breast, the axilla of both breasts and the retroareolar of both breasts were scanned. Right breast: There are prominent retroareolar ducts. There are 2 relatively isoechoic masslike areas right retroareolar region reflect galactocele. This could be confirmed with follow-up study in 3 months. These lesions persist biopsy is recommended. 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 Measure 1.4 cm and 1.0 cm in maximal dimension. Left breast: Again noted are multiple prominent ducts. 6 mm nodular density seen on mammography is not confirmed seen. Given smooth margins on mammography short-term follow-up is advised. Right breast: There are prominent retroareolar ducts. There are 2 relatively isoechoic masslike areas right retroareolar region reflect galactocele. This could be confirmed with follow-up study in 3 months. These lesions persist biopsy is recommended. 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 Measure 1.4 cm and 1.0 cm in maximal dimension. Left breast: Again noted are multiple prominent ducts. 6 mm nodular density seen on mammography is not confirmed seen. Given smooth margins on mammography short-term mammographic follow-up is advised. Overall Assessment: Probably benign, BI-RAD 3 Management: Diagnostic Breast Ultrasound of the right breast in 3 months. A clinical breast exam by your physician is recommended on an annual basis and results should be correlated with mammographic findings. This exam should not preclude additional follow-up of suspicious palpable abnormalities. Results were given to the patient verbally at the time of exam. [facility], , 06/26/2024 8:23 AM. Electronically signed and approved by: Farhat Marie M.D. Radiologis
--- NOTE | 2024-06-27 12:58 | MM ---
Reason for Exam: Follow-up at short interval from prior study. Last mammogram was performed 1 year(s) and 5 month(s) ago. Patient History: Menarche at age 11. First Full-Term at age 19. Premenopausal. Patient has history of breast feeding. 02/06/2023, Benign US biopsy breast VAD LT on the left side. 04/28/2022, Benign US biopsy breast VAD LT on the left side. 04/28/2022, US breast aspiration single LT on the Left side. Maternal grandmother had breast cancer, age 50. Maternal aunt had breast cancer, age 40. Maternal aunt had breast cancer, age 60. Maternal aunt had breast cancer, age 58. Maternal cousin had breast cancer, age 39. Maternal cousin had breast cancer, age 41. Sister had breast cancer, age 37. Last menstrual period: 05/28/2024 Prior Study Comparison: 09/18/2007 Left Diagnostic Ultrasound, [facility]. 04/22/2022 Bilateral MG diagnostic mammo w CAD CAROL, [facility]. 04/22/2022 Left US breast limited LT, [facility]. 04/28/2022 Left MG diagnostic mammo LT wo CAD., [facility]. 01/26/2023 Bilateral MG 3D diag mammo w/cad CAROL, [facility]. 01/26/2023 Bilateral US breast BILAT, [facility]. 02/06/2023 Left MG diagnostic mammo LT wo CAD., [facility]. 05/08/2023 Right US breast axilla RT, [facility]. 06/01/2023 Bilateral US breast limited BILAT, [facility]. Tissue Density: The breasts are heterogeneously dense, which may obscure small masses. Findings: Analyzed By CAD. Previously noted nodule upper outer quadrant right breast as there is right-sided retroareolar increased density likely reflecting dilated ducts. Ultrasound is recommended. There is a 6 mm nodule upper outer left breast 8 cm from the nipple. This nodule measures 6 mm and ultrasound is also noted. Benign punctate calcifications left breast. Overall Assessment: Incomplete: need additional imaging evaluation, BI-RAD 0 Management: Diagnostic Breast Ultrasound of both breasts. Results were given to the patient verbally at the time of exam. Patient should continue monthly self-breast exams. A clinical breast exam by your physician is recommended on an annual basis. This exam should not preclude additional follow-up of suspicious palpable abnormalities. Note on Darleen scores and lifetime risk: 1. A Darleen score greater than 3% is considered moderate risk. If this is the case, consider specialist referral to assess eligibility for a risk reducing agent. 2. If overall lifetime risk for the development of breast cancer is 20% or higher, the patient may qualify for future screening with alternating mammogram and breast MRI. [facility], , 06/26/2024 7:49 AM . Electronically signed and approved by: Farhat Marie M.D. Radiologis
== END | disposition home or self-care (01) ==
LOC: RADMAMWWP 07:21
PROVIDERS: ATTEND Surgery
DX: R92.333 Mammographic heterogeneous density, bilateral breasts (principal); Z80.3 Family history of malignant neoplasm of breast
CPT/HCPCS: 77066; 76642; G0279; 77062

== ENCOUNTER → 2024-10-07 | Outpatient (CLI) | payer OTHER ==
--- NOTE | 2024-10-07 15:31 | USB ---
Reason for Exam: Follow-up at short interval from prior study. Patient History: Menarche at age 11. First Full-Term at age 19. Premenopausal. Patient has history of breast feeding. 02/06/2023, Benign US biopsy breast VAD LT on the left side. 04/28/2022, Benign US biopsy breast VAD LT on the left side. 04/28/2022, US breast aspiration single LT on the Left side. Maternal grandmother had breast cancer, age 50. Maternal aunt had breast cancer, age 40. Maternal aunt had breast cancer, age 60. Maternal aunt had breast cancer, age 58. Maternal cousin had breast cancer, age 39. Maternal cousin had breast cancer, age 41. Maternal cousin had breast cancer, age 33. Sister had breast cancer, age 37. Technique: Method: Whole Breast Handheld. Prior Study Comparison: 01/26/2023 Bilateral MG 3D diag mammo w/cad CAROL, [facility]. 02/06/2023 Left MG diagnostic mammo LT wo CAD., [facility]. 06/26/2024 Bilateral MG 3D diag mammo w/cad CAROL, [facility]. Findings: The whole breast of both breasts, the axilla of both breasts and the retroareolar of both breasts were scanned. Right: Whole breast ultrasound including scanning of the subareolar region and axilla. Duct ectasia is noted behind the nipple. At 9:00 subareolar region, there is redemonstration of a round isoechoic to echogenic circumscribed mass measuring 1.2 x 1.0 x 1.0 cm. Previously measured at 1.4 cm on 06/26/2024. A benign etiology is suggested. An additional follow-up can be performed. No other solid or cystic lesion or axillary adenopathy. Left: Whole breast ultrasound including scanning of the subareolar region and axilla. Duct ectasia behind the nipple. Hypoechoic area at the 1:00 position, 5 cm from the nipple measuring 8 mm with microclip related to prior biopsy. No other solid or cystic lesion or axillary adenopathy. Overall Assessment: Probably benign, BI-RAD 3 Management: Diagnostic Mammogram of both breasts in 8 months. Diagnostic Breast Ultrasound of the right breast in 8 months. in time for the patient's annual exam. Given the patient's family history, patient may qualify for alternating screening with breast MRI. A clinical breast exam by your physician is recommended on an annual basis and results should be correlated with mammographic findings. This exam should not preclude additional follow-up of suspicious palpable abnormalities. Results were given to the patient verbally at the time of exam. [facility], , 10/07/2024 3:28 PM. Electronically signed and approved by: Kassandra Thorpe M.D. Radiologist
== END | disposition home or self-care (01) ==
LOC: RADMAMWWP 13:45
PROVIDERS: ATTEND Surgery
DX: R92.8 Other abnormal and inconclusive findings on diagnostic imaging of breast (principal); N60.49 Mammary duct ectasia of unspecified breast; Z80.3 Family history of malignant neoplasm of breast

== ENCOUNTER → 2024-10-09 | Outpatient (CLI) | payer OTHER | END | disposition home or self-care (01) | LOC: LABWHC1 16:13 | PROVIDERS: ATTEND Obstetrics & Gynecology | DX: N92.6 Irregular menstruation, unspecified (principal) | CPT/HCPCS: 36415; 84702 ==

== ENCOUNTER → 2024-10-14 | Outpatient (CLI) | payer MEDICAID | END | disposition home or self-care (01) | LOC: LABWHC1 16:20 | PROVIDERS: ATTEND Obstetrics & Gynecology | DX: N92.6 Irregular menstruation, unspecified (principal) | CPT/HCPCS: 36415; 84702 ==

== ENCOUNTER → 2024-11-02 | Outpatient (CLI) | payer OTHER ==
[2024-11-02 13:18] LABS: Basophils # (A) 0.06 X 10*3/uL (0.00-0.10); Eosinophils # (A) 0.15 X 10*3/uL (0.04-0.35); Eosinophils % (A) 2.4 %; HCT 41.5 % (37.2-46.3); Lymphocytes # (A) 2.17 X 10*3/uL (0.90-5.00); Lymphocytes % (A) 34.5 %; MCH 30.3 pg (27.0-32.0); MCHC 33.7 g/dL (32.0-37.0); MCV 89.8 FL (80.0-97.0); Monocytes % (A) 7.9 %; NRBC Per 100 WBC 0 X 10*3/uL (0.00-0.01); Neutrophils # (A) 3.39 X 10*3/uL (1.80-7.70); Neutrophils % (A) 53.9 %; Platelet Count 337 X 10*3/uL (140-440); RBC 4.62 X 10*6/uL (4.10-5.20); WBC 6.29 X 10*3/uL (4.50-10.00)
[2024-11-02 13:41] LABS: ALT 17 U/L (8-44); AST 19 U/L (13-35); Albumin 4.4 g/dL (3.8-4.9); Alkaline Phosphatase 70 U/L (41-126); BUN/Creat Ratio 12.12 Ratio (12.00-20.00); Blood Urea Nitrogen 9.7 mg/dL (9.0-27.0); Calcium 9.2 mg/dL (8.7-10.3); Carbon Dioxide 23.1 mmol/L (21.6-31.8); Chloride 105 mmol/L (96-109); Chol/HDL Ratio 2.96 Ratio; Globulin 2.1 g/dL (1.6-3.3); Glucose 94 mg/dL (70-110); LDL Cholesterol,Calculated 83.9 mg/dL (0.0-131.0); Potassium 4.1 mmol/L (3.5-5.5); Sodium 139 mmol/L (135-145); Total Bilirubin 0.5 mg/dL (0.3-1.2); Total Protein 6.5 g/dL (6.2-8.2); VLDL Calculation 16.08 mg/dL (5.00-40.00)
== END | disposition home or self-care (01) ==
LOC: LABWHC1 08:40
PROVIDERS: ATTEND Nurse Practitioner Family
DX: O09.91 Supervision of high risk pregnancy, unspecified, first trimester (principal); O26.899 Other specified pregnancy related conditions, unspecified trimester; L29.9 Pruritus, unspecified; R79.9 Abnormal finding of blood chemistry, unspecified; R19.7 Diarrhea, unspecified; Z3A.01 Less than 8 weeks gestation of pregnancy
CPT/HCPCS: 36415; 80053; 80061; 84443; 85025